=== PATIENT | male | born 1940 | race Caucasian/White ===

== ENCOUNTER 2019-04-28 09:48 | Emergency (ER) | payer MEDICARE ==
[2019-04-28 10:27] LABS: #Eosinphils 0.5 thou/uL (0.0-0.7); #Lymphocytes 0.5 thou/uL (1.20-3.40); #Monocytes 0.6 thou/uL (0.11-0.59); #Neutrophils 9.1 thou/uL (1.40-6.50); %Basophils 0.1 % (0.0-1.0); %Eosinophils 4.7 % (0.0-10.0); %Monocytes 5.3 % (0.0-10.0); %Neutrophils 84.8 % (42.0-75.0); Hemoglobin 14.1 g/dL (14.0-18.0); Mean Corpuscular HGB CONC 33.3 g/dL (32.0-36.0); Mean Corpuscular Hemoglobin 30.4 pg (27.0-31.0); Mean Corpuscular Volume 91.4 fL (78.0-98.0); Mean Platelet Volume 7.5 fL (7.4-10.4); Platelet Count 139 thou/uL (130-400); RBC Distribution Width 12.3 % (11.5-14.5); Red Blood Cell (RBC) Count 4.63 mill/uL (4.70-6.10); White Blood Cell (WBC) Count 10.8 thou/uL (4.8-10.8)
[2019-04-28] MEDS ORDERED: Ketorolac Tromethamine 30 MG/ML VIAL ONE (10:31)
--- NOTE | 2019-04-28 10:46 | CT ---
CT OF THE BRAIN WITHOUT CONTRAST: COMPARISON: None. HISTORY: Headache and neck pain. TECHNIQUE: Multiple contiguous axial images were obtained in a CT of the brain without contrast. FINDINGS: The brain is normal in morphology and attenuation without focal lesions or confluent areas of infarct ion. There is no evidence of hydrocephalus, intracranial hemorrhage, or extraaxial fluid collection. The calvarium and overlying soft tissues are unremarkable. The visualized paranasal sinuses and mast oid air cells are well aerated. IMPRESSION: No evidence of acute intracranial abnormality. POS: [facility]
--- NOTE | 2019-04-28 10:47 | CT ---
Cervical spine CT without contrast: 04/28/2019 COMPARISON: 05/11/2015 HISTORY: Headache and neck pain TECHNIQUE: Axial CT imaging at 2.5 mm intervals from skull base through lung apices without contrast. Coronal and sagittal reformatted imaging obtained. FINDINGS: Evaluation for central canal and/or neural foraminal stenosis is limited on routine cervica l spine CT. The craniocervical junction appears intact. There is prominent degenerative change at the atlantoaxia l interspace, stable. There is stable straightening of the normal cervical lordosis. There is prominent degenerative endpla te change with disc space narrowing and anterior osteophyte formation at C4-5, C5-6, C6-7, and C7-T1, slightly progressed at all levels when compared to the prior CT examination. The occipital condyles, the dens, and the C1-2 articulation demonstrate no acute findings. The C1 ring is intact. C2-3: No osseous cause of significant central canal or neural foraminal stenosis. Right facet hypertr ophy noted. C3-4: There is bilateral facet and uncovertebral osteophyte formation, right greater than left, with moderate bilateral neural foraminal stenosis, right greater than left. C4-5: Bilateral facet and uncovertebral osteophyte formation, right greater than left. Severe right a nd moderate left neural foraminal stenosis. C5-6: Posterior osteophyte formation with at least mild central canal stenosis noted. Bilateral facet and uncovertebral osteophyte formation noted with moderate/severe bilateral neural foraminal stenosis, left greater than right. C6-7: Bilateral facet and uncovertebral osteophyte formation with moderate/severe bilateral neural fo raminal stenosis. Posterior osteophyte formation with mild to moderate canal stenosis. C7-T1: There is disc space narrowing and posterior osteophyte as well as bilateral facet and uncovert ebral osteophyte formation, right greater than left. Moderate/severe bilateral neural foraminal stenosis, right greater than left. The imaged lung apices are unremarkable. No acute fracture or evidence of dislocation is seen. IMPRESSION: Severe multilevel cervical spine degenerative change as described above.
[2019-04-28 10:49] LABS: ALT (SGPT) 24 U/L (8-55); AST (SGOT) 20 U/L (5-34); Albumin 3.6 g/dL (3.4-4.8); Alkaline Phosphatase 76 U/L (40-150); Anion Gap 12 mmol/L (10-20); BUN (Urea Nitrogen) 14 mg/dL (8.4-25.7); Calc. Creatinine Clearance 0 mL/min (70-130); Calcium 9.4 mg/dL (7.8-10.44); Carbon Dioxide 26 mmol/L (23-31); Chloride 95 mmol/L (98-107); Estimated GFR-MDRD 65; Globulin 3.2 g/dL (2.4-3.5); Glucose 171 mg/dL (83-110); Potassium 3.8 mmol/L (3.5-5.1); Protein, Total 6.8 g/dL (5.8-8.1); Sodium 129 mmol/L (136-145)
== END 2019-04-28 12:47 | disposition home or self-care (01) ==
LOC: ERS 09:48
DX: M50.33 Other cervical disc degeneration, cervicothoracic region (principal); E03.9 Hypothyroidism, unspecified; K21.9 Gastro-esophageal reflux disease without esophagitis; Z79.899 Other long term (current) drug therapy
CPT/HCPCS: 36415; 70450; 72125; 80053; 85025; 96372; J1885

== ENCOUNTER 2019-04-29 13:47 | Inpatient (IN) | payer MEDICARE, BC ==
[2019-04-29 15:09] LABS: #Eosinphils 0.8 thou/uL (0.0-0.7); #Lymphocytes 0.6 thou/uL (1.20-3.40); #Monocytes 0.6 thou/uL (0.11-0.59); #Neutrophils 6.8 thou/uL (1.40-6.50); %Basophils 0.1 % (0.0-1.0); %Eosinophils 8.6 % (0.0-10.0); %Lymphocytes 6.4 % (21.0-51.0); %Monocytes 6.8 % (0.0-10.0); Hemoglobin 13.3 g/dL (14.0-18.0); Mean Corpuscular Hemoglobin 29.5 pg (27.0-31.0); Mean Corpuscular Volume 92.2 fL (78.0-98.0); Mean Platelet Volume 7.4 fL (7.4-10.4); Platelet Count 170 thou/uL (130-400); RBC Distribution Width 12.5 % (11.5-14.5); Red Blood Cell (RBC) Count 4.51 mill/uL (4.70-6.10); White Blood Cell (WBC) Count 8.8 thou/uL (4.8-10.8)
[2019-04-29 15:38] LABS: ALT (SGPT) 29 U/L (8-55); AST (SGOT) 19 U/L (5-34); Albumin 3.6 g/dL (3.4-4.8); Alkaline Phosphatase 83 U/L (40-150); Anion Gap 13 mmol/L (10-20); BUN (Urea Nitrogen) 14 mg/dL (8.4-25.7); Bilirubin, Total 1.3 mg/dL (0.2-1.2); Calc. Creatinine Clearance 0 mL/min (70-130); Calcium 10.2 mg/dL (7.8-10.44); Carbon Dioxide 29 mmol/L (23-31); Chloride 96 mmol/L (98-107); Estimated GFR-MDRD 74; Globulin 3.6 g/dL (2.4-3.5); Glucose 122 mg/dL (83-110); Potassium 4.2 mmol/L (3.5-5.1); Protein, Total 7.2 g/dL (5.8-8.1); Sodium 134 mmol/L (136-145)
--- NOTE | 2019-04-29 15:42 | RAD ---
PORTABLE CHEST ONE VIEW: 04/29/19 at 3:03 p.m. HISTORY: Upper chest pain. FINDINGS/IMPRESSION: The heart size is borderline. The lungs are well expanded without lobar consolidation, pneumothoraces , chu pulmonary edema, or large effusions. POS: [facility]
[2019-04-29 16:07] LABS: CKMB 5.1 ng/mL (0-6.6)
[2019-04-29] MEDS ORDERED: Aspirin Chewable 81 MG TAB ONE (17:16)
[2019-04-29] MEDS ORDERED: Enoxaparin Sodium 100 MG/ML SYRINGE ONE (17:16)
[2019-04-29 17:39] LABS: INR-International Normal Ratio 1.2
[2019-04-29 17:40] LABS: PTT 40.1 SEC (22.9-36.1)
[2019-04-29 18:34] LABS: Troponin I 0.409 ng/mL (< 0.028)
[2019-04-29] MEDS ORDERED: Ondansetron PF 4 MG/2 ML Vial IVP PRN ×2 (18:44→19:05)
[2019-04-29] MEDS ORDERED: Ondansetron ODT 4 MG TAB SL PRN (18:44)
[2019-04-29] MEDS ORDERED: Acetaminophen 325 MG TAB PO PRN (18:44)
[2019-04-29] MEDS ORDERED: Ondansetron ODT 4 MG TAB PO PRN (19:05)
[2019-04-29] MEDS: Famotidine 20 MG TAB PO SCH (20:38)
[2019-04-29] MEDS: Nitroglycerin 2% Ointment 1 INCH/1 GM Packet TOP SCH ×3 (20:38→20:40)
--- NOTE | 2019-04-29 23:06 | HP ---
PRIMARY CARE PHYSICIAN: Dr. Jas Lala. CHIEF COMPLAINT: Chest pain. HISTORY OF PRESENT ILLNESS: Mr. Barreto is a very pleasant 78-year-old gentleman who has a history of hyperthyroidism, who says that he also has a history of back pain and cervical spine disease. He says that in the last 4-5 days, he started having pains in his muscles, primarily in his legs and back. He also says he was not quite feeling well. For this reason, he went to the ER yesterday. At that time, they did an x-ray of his cervical spine as well as a CT scan of the brain. He says they gave him some shot and a muscle relaxer and the leg pains got better as well as the back pain. But late last night around 11:00 p.m., he says he was having trouble sleeping and started having pain in the center of his chest. He says it was like a constant pain that went up into his throat area. He rated it about a 9.5/10. He took some medication for pain, hoping that it would get better, but it only partially alleviated it. This went on through the night until today at which time, he decided he needed to come to the ER for evaluation. He also says that he has some heartburn-like feelings as well. There was no nausea, no vomiting, no shortness of breath and he denies any palpitations, and in no dizziness or lightheadedness. He did say he felt weak and his daughter says he was sweating a bit. The patient also denies any leg swelling. REVIEW OF SYSTEMS: CONSTITUTIONAL: There has been no fevers, chills. No night sweats. No weight loss. HEENT: No headaches. No dizziness. No visual changes. No sore throat, rhinorrhea, neck pain. No adenopathy. PULMONARY: No hemoptysis, no cough, no wheezing. CARDIOVASCULAR: As in the history of present illness. GASTROINTESTINAL: No abdominal pain. No nausea. No vomiting. No change in bowels. GENITOURINARY: No urinary frequency, hematuria, no hesitancy. MUSCULOSKELETAL: He had some leg pains and lower back pains primarily yesterday, but no muscle cramping. NEUROLOGIC: No focal weakness. No numbness. No seizures. SKIN AND INTEGUMENT: No skin changes. No rashes. ENDOCRINE: No heat or cold intolerance. PAST MEDICAL HISTORY: Significant for hypothyroid, what sounds like, which was initially hyperthyroidism and then he has been treated for hypothyroidism currently now. PAST SURGICAL HISTORY: He has had a lens implant in the right eye and carpal tunnel surgery on the right arm. ALLERGIES: NO KNOWN DRUG ALLERGIES. SOCIAL HISTORY: He is a nonsmoker and nondrinker. He is and is a full code. FAMILY HISTORY: Grandmother had an enlarged heart. Mother had some type of cardiac disease. MEDICATIONS: Include Synthroid 125 mcg daily. PHYSICAL EXAMINATION: GENERAL: He is alert and oriented. He appears to be in no acute distress. He is well developed and well nourished. VITAL SIGNS: Blood pressure is 151/80, heart rate 97, respiratory rate of 18, temperature is 98.7, and O2 saturation is 96% on room air. HEENT: His pupils are equal, round, and reactive. Extraocular muscles are intact. Sclerae are anicteric. Throat, no erythema, no exudates. He does have poor dentition. NECK: There is no adenopathy. No bruits. LUNGS: Clear to auscultation. There is no wheezing, no rales, no rhonchi. CARDIOVASCULAR: He has a normal S1 and S2. There is no S3 or S4. No murmurs, clicks, or rubs. ABDOMEN: Obese. It is soft. It is nontender, nondistended. Positive for bowel sounds. There is no rebound, no guarding, no organomegaly. EXTREMITIES: There is no clubbing, cyanosis, no edema. NEUROLOGICAL: Nonfocal. DIAGNOSTIC DATA: His EKG, by my reading, is sinus rhythm. There is evidence for right bundle-branch block, voltage criteria for LVH and the heart rate is 91. LAB RESULTS: White blood cell count 8.8, hemoglobin 13.3, hematocrit is 41.6, and platelet count is 170. Sodium 134, potassium 4.2, chloride is 96, CO2 is 29, BUN of 14, creatinine 0.98, glucose is 122. Troponin is 0.354. INR is 1.2. ASSESSMENT: This is a pleasant 78-year-old gentleman who presents to the ER with chest pain, atypical, albeit; however, his troponin is elevated. He will be admitted for acute coronary syndrome, started on aspirin, nitrates, and beta-blockers as tolerated. Cardiology will be consulted for further recommendations. 1. Hypothyroidism. He appears to be clinically euthyroid. We will check his thyroid function test and continue Synthroid. Otherwise, further recommendations will be based on the identification technician. Job ID: [id number]
[2019-04-29] MEDS: Acetaminophen 325 MG TAB PO PRN (23:15)
[2019-04-29] MEDS: Nitroglycerin 0.4 MG TAB (25 Tab Bottle) PO PRN ×3 (23:19→23:29)
[2019-04-30] MEDS: Nitroglycerin 0.4 MG TAB (25 Tab Bottle) PO PRN ×5 (00:17→23:44)
[2019-04-30] MEDS ORDERED: Morphine 2 MG/ML SYRINGE SLOW IVP SCH (01:30)
[2019-04-30 02:11] LABS: Hemoglobin 12.6 g/dL (14.0-18.0); Platelet Count 162 thou/uL (130-400)
[2019-04-30] MEDS ORDERED: Atorvastatin Calcium 40 MG TAB PO SCH (02:30)
[2019-04-30] MEDS: Heparin 25,000 units/D5W 500 ML IVPB SCH (02:33)
[2019-04-30] MEDS: Heparin 10,000 UNITS/ 10 ML VIAL SLOW IVP SCH ×4 (02:34→22:05)
[2019-04-30 04:53] LABS: #Eosinphils 0.9 thou/uL (0.0-0.7); #Lymphocytes 0.6 thou/uL (1.20-3.40); #Monocytes 0.5 thou/uL (0.11-0.59); #Neutrophils 5.2 thou/uL (1.40-6.50); %Basophils 0.1 % (0.0-1.0); %Eosinophils 12.2 % (0.0-10.0); %Lymphocytes 8.5 % (21.0-51.0); %Monocytes 6.7 % (0.0-10.0); %Neutrophils 72.5 % (42.0-75.0); Hemoglobin 12.4 g/dL (14.0-18.0); Mean Corpuscular Hemoglobin 28.6 pg (27.0-31.0); Mean Corpuscular Volume 92.2 fL (78.0-98.0); Mean Platelet Volume 7.5 fL (7.4-10.4); Platelet Count 170 thou/uL (130-400); RBC Distribution Width 12.5 % (11.5-14.5); Red Blood Cell (RBC) Count 4.35 mill/uL (4.70-6.10); White Blood Cell (WBC) Count 7.1 thou/uL (4.8-10.8)
[2019-04-30 05:15] LABS: Anion Gap 12 mmol/L (10-20); BUN (Urea Nitrogen) 18 mg/dL (8.4-25.7); Calc. Creatinine Clearance 96 mL/min (70-130); Calcium 9.5 mg/dL (7.8-10.44); Carbon Dioxide 27 mmol/L (23-31); Cardiac Risk 5.2 (Less than 4.5); Chloride 98 mmol/L (98-107); Cholesterol 134 mg/dl (< 200 Desired); Estimated GFR-MDRD 81; Glucose 127 mg/dL (83-110); HDL Cholesterol 26 mg/dL (>60 Neg Risk); LDL Cholesterol, Calculated 89 mg/dL; Sodium 133 mmol/L (136-145); Triglycerides 95 mg/dL (Less than 150)
[2019-04-30] MEDS: Nitroglycerin 2% Ointment 1 INCH/1 GM Packet TOP SCH ×3 (05:28→20:12)
[2019-04-30] MEDS: Carvedilol 3.125 MG TAB PO SCH ×2 (08:58→16:04)
[2019-04-30] MEDS ORDERED: Enoxaparin Sodium 40 MG/0.4 ML SYRINGE SC SCH (09:00)
[2019-04-30] MEDS ORDERED: Prevnar 13-Val Conj/PF 0.5 ML SYRINGE IM ONE (09:00)
[2019-04-30] MEDS: Famotidine 20 MG TAB PO SCH (09:02)
[2019-04-30] MEDS: Aspirin 325 mg Enteric Coated Tablet PO SCH (09:02)
[2019-04-30] MEDS ORDERED: Mag-Al 1200 mg/1200 mg/30 ML UDCUP PO PRN (13:23)
[2019-04-30] MEDS ORDERED: Cyclobenzaprine 10 MG TAB PO PRN (13:24)
[2019-04-30] MEDS ORDERED: Calcium Carbonate 500 MG ChewTAB PO PRN (13:25)
[2019-04-30] MEDS ORDERED: Bisacodyl 10 MG SUPP PR PRN (13:25)
[2019-04-30] MEDS ORDERED: Morphine 4 MG/ML VIAL SLOW IVP PRN (13:27)
[2019-04-30] MEDS ORDERED: traMADol HCl 50 MG TAB PO PRN (13:28)
[2019-04-30] MEDS ORDERED: Polyethylene Glycol 3350 17 GM Packet PO SCH (13:30)
[2019-04-30] MEDS ORDERED: Communication Order-Pharmacy FS SCH (19:45)
[2019-04-30] MEDS ORDERED: Sodium Chloride 0.9% 1,000 ML IV SCH (19:45)
--- NOTE | 2019-04-30 20:04 | PRG ---
DATE OF SERVICE: 04/30/2019 SUBJECTIVE: A 78-year-old male with hypothyroidism and GERD presented to the emergency room with chest discomfort. Please note that he was seen in the emergency room day before admission for neck pain. Cervical spine CT scan was consistent with severe multilevel cervical spine degenerative disease. He presented with a new onset chest discomfort that started in the last 24 hours. His workup was consistent with suspected [id number] MT with troponin of 0.430. He denies recent immobilization or travel. He is currently on heparin drip. The chest x-ray was negative for infiltrate or edema. OBJECTIVE: VITAL SIGNS: Temperature 98.2, pulse 87, respirations of 16, blood pressure 123/71, O2 saturation 95% on 2 L nasal cannula. Intake of 440, output 600. Current medications were reviewed. The patient is on heparin drip along with aspirin, nitroglycerin patch, carvedilol. Telemetry monitoring by my review showed sinus rhythm. GENERAL: A 78-year-old male, in no apparent distress. LUNGS: Clear to auscultation bilaterally. No wheezing, rales, or rhonchi. HEART: S1 and S2 present. Regular rate and rhythm. No rubs or gallops. ABDOMEN: Soft, nontender. Bowel sounds present. No rebound or guarding. EXTREMITIES: No edema or calf tenderness. NEUROLOGIC: Grossly nonfocal. Moves all 4 extremities. PSYCHIATRY: Normal affect. Alert awake oriented x3. LABORATORY FINDINGS: WBC 7.1 with hemoglobin 12.4, hematocrit 40.1, platelets 170. PTT 43.3. Sodium 133, potassium 4, chloride 98, bicarb 27, BUN 18, creatinine 0.91, glucose of 127. Troponin 0.430. TSH 2.11. Triglyceride 95, cholesterol 134, LDL 89, HDL 26. Chest x-ray by my review as discussed above. EKG by my review as discussed above. IMPRESSION: 1. Chest discomfort. 2. Elevated troponins, suspected [id number] myocardial infarction. 3. Hypothyroidism. 4. Cervical degenerative joint disease. 5. Chronic kidney disease, stage 2. 6. Obesity with a BMI of 32.1. 7. Mild hyponatremia. 8. Chronic anemia, normochromic normocytic. PLAN: Cardiology has been consulted. We will add echocardiogram. He is currently on aspirin, heparin drip, nitroglycerin patch, low-dose beta blockers, and statin. We will resume levothyroxine and Protonix. We will continue p.r.n. pain medications. Recheck labs in a.m. We will recheck EKG in a.m. Continue telemetry monitoring. Plan was discussed with the patient and the family in detail. They stated understanding. Job ID: [id number]
[2019-04-30] MEDS: Acetaminophen 325 MG TAB PO PRN (20:10)
[2019-04-30] MEDS: Senokot S 8.6-50 MG TAB PO SCH (20:12)
[2019-04-30] MEDS: Atorvastatin Calcium 40 MG TAB PO SCH (20:12)
--- NOTE | 2019-04-30 21:47 | CON ---
DATE OF CONSULTATION: HISTORY OF PRESENT ILLNESS: Emilio Barreto is a 78-year-old white male, who in 1991 had thyroid problems and underwent cardiac catheterization by Dr. Leonard. That information is no longer available. The patient states that he had normal coronary arteries. He denies ever having any significant chest discomfort in the past. He came to the emergency room on April 28 complaining of neck pain as well as pain throughout his body and his legs. He had a CT scan of the brain and C-spine films. Brain CT was unremarkable. Cervical spine CT revealed severe multilevel cervical spine degeneration. He was given muscle relaxers and ultimately sent home. In retrospect, he states that he was having chest discomfort during all of this, however, it was overshadowed by his neck and leg pain. He then had approximately one and a half hours of very severe chest discomfort at home. It was a constant pressure in his chest, radiating to his neck. Mild diaphoresis, but no nausea, vomiting , or shortness of breath. He took some type of pain medicine that he had at home for 7 or 8 years and came to the emergency room. He had abnormal cardiac enzymes and was admitted. He states last night that he had an episode of chest discomfort, relieved by sublingual nitroglycerin x3. He then had another episode that was relieved with intravenous morphine. He has not had any chest discomfort since. He has been started on carvedilol and topical nitrates. The also relates an episode approximately 1 month ago, where he was sitting at his computer and his vision went completely black. He felt lightheaded with this, but never did lose muscle tone or fall out of the chair. He is uncertain how long the episode lasted. PAST MEDICAL HISTORY: Initially hyperthyroidism, but now he is hypothyroid and is being treated with replacement. He denies history of diabetes, hypertension, or hypercholesterolemia. PAST SURGICAL HISTORY: Carpal tunnel surgery of the right wrist and lens implant in the right eye. MEDICATIONS: Omeprazole 20 mg daily p.r.n., levothyroxine 125 mcg daily. ALLERGIES: NONE. SOCIAL HISTORY: He smoked one and a half packs per day, but stopped 35 years ago. He does not drink. FAMILY HISTORY: Negative for coronary artery disease. REVIEW OF SYSTEMS: A 12-point review of systems is otherwise unremarkable. PHYSICAL EXAMINATION: VITAL SIGNS: Blood pressure 128/72, pulse 94. HEENT: PERRL. NECK: Supple. CHEST: Clear. CARDIAC: S1 and S2 normal without any S3, S4, or murmurs. Carotid upstrokes normal without bruits. ABDOMEN: Normal bowel sounds without tenderness. EXTREMITIES: Reveal no clubbing, cyanosis, or edema. NEUROLOGIC: Grossly intact. SKIN: Warm and dry. LABORATORY DATA: Chest x-ray revealed borderline cardiac enlargement. EKG reveals normal sinus rhythm with right bundle-branch block, left anterior fascicular block. Hemoglobin 12.4, hematocrit 40.1, white count 7100, platelets 170,000. The patient currently is on heparin drip. PTT is 43.3. Sodium 133, potassium 4.0, chloride 98, carbon dioxide 27, BUN 18, creatinine 0.91. Troponin I 0.354, increased to 0.430. Cholesterol 134, triglycerides 95, HDL 26, LDL 89. TSH is normal. IMPRESSION: 1. Non-ST elevation myocardial infarction. 2. Episode of near-syncope, approximately 1 month ago, where his vision darkened , but he never fell out of the chair or loss of muscle tone. 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 3. Probable hypercholesterolemia with an LDL of 89. 4. Distant smoker. 5. Hypothyroidism. PLAN: Situation was discussed with the patient, his , and family members. It was recommended that he undergo cardiac catheterization. Risks of this were discussed including , myocardial infarction, dye reaction, vascular injury, CVA, transfusion, limb loss, renal loss, etc. We also discussed stent placement with additional risk of , myocardial infarction, emergent CABG, restenosis, stent thrombosis, vessel perforation, etc. He has never had gastrointestinal bleeding or stroke. He does not have any upcoming surgeries. Overall, it was recommended that a drug-eluting stent be placed if needed. He agrees to take Plavix for 1 year. Job ID: [id number] [facility]
[2019-05-01] MEDS: Heparin 25,000 units/D5W 500 ML IVPB SCH ×2 (03:05→21:27)
[2019-05-01] MEDS: Levothyroxine Sodium 125 MCG TAB PO SCH (04:56)
[2019-05-01] MEDS: Nitroglycerin 2% Ointment 1 INCH/1 GM Packet TOP SCH ×3 (04:56→21:24)
[2019-05-01 05:07] LABS: #Eosinphils 1.2 thou/uL (0.0-0.7); #Lymphocytes 0.7 thou/uL (1.20-3.40); #Monocytes 0.4 thou/uL (0.11-0.59); #Neutrophils 3.6 thou/uL (1.40-6.50); %Basophils 0.5 % (0.0-1.0); %Eosinophils 20.2 % (0.0-10.0); %Lymphocytes 11.8 % (21.0-51.0); %Monocytes 6.5 % (0.0-10.0); Hemoglobin 13.9 g/dL (14.0-18.0); Mean Corpuscular HGB CONC 32.1 g/dL (32.0-36.0); Mean Corpuscular Hemoglobin 29.9 pg (27.0-31.0); Mean Corpuscular Volume 93.2 fL (78.0-98.0); Mean Platelet Volume 7.1 fL (7.4-10.4); Platelet Count 180 thou/uL (130-400); RBC Distribution Width 12.7 % (11.5-14.5); Red Blood Cell (RBC) Count 4.65 mill/uL (4.70-6.10); White Blood Cell (WBC) Count 5.9 thou/uL (4.8-10.8)
[2019-05-01 05:14] LABS: Hemoglobin A1c 6.1 % (4.0-6.0)
[2019-05-01 05:30] LABS: ALT (SGPT) 28 U/L (8-55); AST (SGOT) 22 U/L (5-34); Albumin 3.5 g/dL (3.4-4.8); Alkaline Phosphatase 92 U/L (40-150); Anion Gap 13 mmol/L (10-20); BUN (Urea Nitrogen) 19 mg/dL (8.4-25.7); Calc. Creatinine Clearance 81 mL/min (70-130); Calcium 9.7 mg/dL (7.8-10.44); Carbon Dioxide 31 mmol/L (23-31); Chloride 95 mmol/L (98-107); Estimated GFR-MDRD 66; Globulin 3.7 g/dL (2.4-3.5); Glucose 118 mg/dL (83-110); Potassium 4.1 mmol/L (3.5-5.1); Protein, Total 7.2 g/dL (5.8-8.1); Sodium 135 mmol/L (136-145)
[2019-05-01] MEDS: Heparin 10,000 UNITS/ 10 ML VIAL SLOW IVP SCH ×2 (05:50→12:53)
[2019-05-01 05:58] LABS: CKMB 1.7 ng/mL (0-6.6)
[2019-05-01] MEDS: Multivit, Therapeutic 1 TAB PO SCH (08:17)
[2019-05-01] MEDS: Senokot S 8.6-50 MG TAB PO SCH ×2 (08:17→21:25)
[2019-05-01] MEDS: Carvedilol 3.125 MG TAB PO SCH ×2 (08:17→16:10)
[2019-05-01] MEDS: Aspirin 325 mg Enteric Coated Tablet PO SCH (08:17)
[2019-05-01] MEDS: Polyethylene Glycol 3350 17 GM Packet PO SCH (08:20)
--- NOTE | 2019-05-01 10:05 | EKG ---
Test Reason : STAT CP Blood Pressure : / mmHG Vent. Rate : 102 BPM Atrial Rate : 102 BPM P-R Int : 170 ms QRS Dur : 118 ms QT Int : 372 ms P-R-T Axes : 060 -61 -21 degrees QTc Int : 484 ms Sinus tachycardia Left axis deviation Right bundle branch block Moderate voltage criteria for LVH, may be normal variant Nonspecific ST-T changes Abnormal ECG No previous ECGs available Confirmed by DR. Gisele FIGUEROA ([id number]) on 05/01/2019 10:05:39 AM Referred By: IRVIN Confirmed By:DR. Gisele FIGUEROA
[2019-05-01] MEDS: HYDROcodone/Acetaminophen 5/325 mg Tablet PO PRN ×2 (14:24→21:24)
--- NOTE | 2019-05-01 15:15 | PDOC.PN ---
- Subjective Encounter Start Date: 05/01/19 Encounter Start Time: 08:45 Patient seen and examined for NSTEMI. Had some CP last night - resolved with SL NTG. No new complaints. No overnight events - Objective Resuscitation Status - Order Detail: 04/29/19 19:01 Resuscitation Status Routine Resuscitation Status: FULL: Full Resuscitation MAR Reviewed: Yes Vital Signs & Weight: Vital Signs (12 hours) Temp Pulse Resp BP Pulse Ox 05/01/19 15:05 98.2 F 79 19 152/72 H 92 L 05/01/19 11:19 98.0 F 82 18 134/73 94 L 05/01/19 07:03 97.9 F 73 19 138/74 96 05/01/19 04:00 98.1 F 76 20 138/73 96 Weight Admit Weight 223 lb 8 oz Weight 223 lb I&O: 04/30/19 05/01/19 05/02/19 06:59 06:59 06:59 Intake Total 440 1220 Output Total 600 1635 Balance -160 -415 Result Diagrams: 05/01/19 04:58 05/01/19 04:58 EKG Reviewed by me: Yes (Tele SR) Phys Exam - Physical Examination Constitutional: NAD Respiratory: no wheezing, no rhonchi Cardiovascular: RRR, no rub Gastrointestinal: soft, non-tender, positive bowel sounds Musculoskeletal: no edema Neurological: moves all 4 limbs Dx/Plan - Plan DVT proph w/SCDs IMPRESSION: 1. CP/NSTEMI 2. Impaired glucose tolerance. 3. Hypothyroidism. 4. Cervical degenerative joint disease. 5. Chronic kidney disease, stage 2. 6. Obesity with a BMI of 32.1. 7. Mild hyponatremia. 8. Chronic anemia, normochromic normocytic. 9. Chronic diastolic HF PLAN: Cath in AM Cont ASA/Heparin drip per Cardiology Echo reviewed Cont nitroglycerin patch/beta blockers/statins. Cont levothyroxine and Protonix. Cont to monitor Makeup Instructor consult Laboratory Tests 04/30/19 05/01/19 05/01/19 04:37 04:58 04:58 Hemoglobin A1c 6.1 H Troponin I 0.413 H* TSH 3rd Generation 2.1745 Review of Systems - Review of Systems Constitutional: negative: fever, chills, sweats, weakness, malaise, other Respiratory: negative: Cough, Dry, Shortness of Breath, Hemoptysis, SOB with Excertion, Pleuritic Pain, Sputum, Wheezing - Medications/Allergies Allergies/Adverse Reactions: Allergies Allergy/AdvReac Type Severity Reaction Status Date / Time poison cliff extract Allergy Verified 04/30/19 05:28 Medications: Current Medications Acetaminophen (Tylenol) 650 mg PO Q4H PRN PRN Reason: Headache/Fever/Mild Pain (1-3) Last Admin: 04/30/19 20:10 Dose: 650 mg Hydrocodone Bitart/Acetaminophen ([place] 5/325) 1 tab PO Q4H PRN PRN Reason: Moderate Pain (4-6) Last Admin: 05/01/19 14:24 Dose: 1 tab Al Hydroxide/Mg Hydroxide (Maalox) 30 ml PO Q6H PRN PRN Reason: Heartburn or Indigestion Aspirin (Ecotrin) 325 mg PO DAILY [facility] Last Admin: 05/01/19 08:17 Dose: 325 mg Atorvastatin Calcium (Lipitor) 40 mg PO HS [facility] Last Admin: 04/30/19 20:12 Dose: 40 mg Bisacodyl (Dulcolax) 10 mg MI DAILYPRN PRN PRN Reason: Constipation Calcium Carbonate (Tums) 1,000 mg PO Q4H PRN PRN Reason: Heartburn or Indigestion Carvedilol (Coreg) 3.125 mg PO BID-[facility] Last Admin: 05/01/19 08:17 Dose: 3.125 mg Cyclobenzaprine HCl (Flexeril) 5 mg PO TID PRN PRN Reason: Muscle Spasm Stop: 05/02/19 13:25 Heparin Sodium (Porcine) (Heparin 1,000 Units/Ml (10 Ml)) 0 units SLOW IVP ASDIR [facility]; Protocol Last Admin: 05/01/19 12:53 Dose: 3,048 unit Heparin Sodium/Dextrose (Heparin 25,000 Units/D5w 500 Ml) 500 mls @ 0 mls/hr IVPB INF [facility]; Protocol Last Admin: 05/01/19 03:05 Dose: 500 mls Sodium Chloride (Normal Saline 0.9%) 1,000 mls @ 100 mls/hr IV .Q10H [facility] Levothyroxine Sodium (Synthroid) 125 mcg PO 0600 [facility] Last Admin: 05/01/19 04:56 Dose: 125 mcg Miscellaneous Information (Communication Order-Pharmacy) 0 each FS ONE [facility] Stop: 05/01/19 23:59 Morphine Sulfate (Morphine) 2 mg SLOW IVP Q4H PRN PRN Reason: Pain Stop: 05/02/19 13:28 Multivitamins (Theragran) 1 tab PO DAILY [facility] Last Admin: 05/01/19 08:17 Dose: 1 tab Nitroglycerin (Nitro-Bid 2% Ointment) 0.5 inch TOP Q8HR [facility] Last Admin: 05/01/19 13:25 Dose: 0.5 inch Nitroglycerin (Nitrostat) 0.4 mg PO Q5MIN PRN PRN Reason: Chest Pain Last Admin: 04/30/19 23:44 Dose: 1 tab Ondansetron HCl (Zofran Odt) 4 mg PO Q6H PRN PRN Reason: Nausea/Vomiting Ondansetron HCl (Zofran) 4 mg IVP Q6H PRN PRN Reason: Nausea/Vomiting Pantoprazole Sodium (Protonix) 40 mg PO DAILY [facility] Last Admin: 05/01/19 08:17 Dose: 40 mg Polyethylene Glycol (Miralax) 17 gm PO DAILY [facility] Last Admin: 05/01/19 08:20 Dose: Not Given Senna/Docusate Sodium (Senokot S) 2 tab PO BID [facility] Last Admin: 05/01/19 08:17 Dose: 2 tab Sodium Chloride (Flush - Normal Saline) 10 ml IVF PRN PRN PRN Reason: Saline Flush Tramadol HCl (Ultram) 50 mg PO Q4H PRN PRN Reason: Moderate Pain (4-6)
[2019-05-01] MEDS: Atorvastatin Calcium 40 MG TAB PO SCH (21:23)
[2019-05-02] MEDS: Nitroglycerin 2% Ointment 1 INCH/1 GM Packet TOP SCH ×2 (06:00→13:06)
[2019-05-02] MEDS: Levothyroxine Sodium 125 MCG TAB PO SCH (06:00)
[2019-05-02] MEDS: Multivit, Therapeutic 1 TAB PO SCH (06:01)
[2019-05-02] MEDS: Carvedilol 3.125 MG TAB PO SCH ×2 (06:01→16:25)
[2019-05-02] MEDS: Sodium Chloride 0.9% 1,000 ML IV SCH ×2 (06:01→15:29)
[2019-05-02] MEDS: Aspirin 325 mg Enteric Coated Tablet PO SCH (06:01)
[2019-05-02] MEDS ORDERED: Lidocaine 1% (PF) 30 ML VIAL ONE ×2 (07:29→13:37)
[2019-05-02] MEDS ORDERED: Heparin 0 ML ONE (07:29)
[2019-05-02] MEDS ORDERED: Heparin 10,000 UNITS/1 ML VIAL ONE (07:29)
[2019-05-02] MEDS: Senokot S 8.6-50 MG TAB PO SCH ×2 (08:15→21:02)
[2019-05-02] MEDS: Polyethylene Glycol 3350 17 GM Packet PO SCH (08:15)
[2019-05-02] MEDS: Acetaminophen 325 MG TAB PO PRN (10:20)
[2019-05-02] MEDS: HYDROcodone/Acetaminophen 5/325 mg Tablet PO PRN (10:21)
--- NOTE | 2019-05-02 11:50 | EKG ---
Test Reason : Blood Pressure : / mmHG Vent. Rate : 074 BPM Atrial Rate : 074 BPM P-R Int : 162 ms QRS Dur : 148 ms QT Int : 452 ms P-R-T Axes : 095 -60 042 degrees QTc Int : 501 ms Sinus rhythm with Premature atrial complexes Right bundle branch block Left anterior fascicular block Bifascicular block Minimal voltage criteria for LVH, may be normal variant Abnormal ECG When compared with ECG of 30-APR-2019 01:29, Premature atrial complexes are now Present Left anterior fascicular block is now Present Criteria for Inferior infarct are no longer Present ST no longer depressed in Inferior leads Confirmed by DR. Gisele FIGUEROA ([id number]) on 05/02/2019 11:49:39 AM Referred By: CECILIA Confirmed By:DR. Gisele FIGUEROA
[2019-05-02] MEDS ORDERED: Atropine Sulfate 1 mg/10 ml Syringe ONE (14:07)
[2019-05-02] MEDS ORDERED: Midazolam HCl 2 mg/2 ml Vial ONE (14:14)
[2019-05-02] MEDS ORDERED: Fentanyl 100 MCG/2 ML VIAL ONE (14:14)
[2019-05-02] MEDS ORDERED: Protamine Sulfate 50 MG/5 ML VIAL ONE (14:39)
[2019-05-02 14:58] VITALS: BMI 31.9
[2019-05-02] MEDS ORDERED: Acetaminophen/Codeine 30-300mg Tablet PO PRN ×2 (15:12)
[2019-05-02] MEDS ORDERED: Nitroglycerin 0.4 MG TAB (25 Tab Bottle) SL PRN (15:12)
[2019-05-02] MEDS ORDERED: Sodium Chloride 0.9% 200 ML IV PRN (15:12)
[2019-05-02] MEDS ORDERED: Sodium Chloride 0.9% 1,000 ML IV SCH (15:15)
[2019-05-02] MEDS ORDERED: Atorvastatin Calcium 20 MG TAB PO SCH (21:00)
--- NOTE | 2019-05-02 22:06 | PDOC.PN ---
- Subjective Encounter Start Date: 05/02/19 Encounter Start Time: 17:30 Patient seen and examined for NSTEMI. No new CP. s/p Cath. No new complaints. No overnight events - Objective Resuscitation Status - Order Detail: 04/29/19 19:01 Resuscitation Status Routine Resuscitation Status: FULL: Full Resuscitation MAR Reviewed: Yes Vital Signs & Weight: Vital Signs (12 hours) Temp Pulse Resp BP Pulse Ox 05/02/19 15:10 98.6 F 67 16 144/71 H 95 05/02/19 11:00 98.4 F 71 17 137/70 92 L Weight Admit Weight 224 lb Weight 222 lb 8 oz I&O: 05/01/19 05/02/19 05/03/19 06:59 06:59 06:59 Intake Total 1220 1486.4 1440 Output Total 1635 1750 650 Balance -415 -263.6 790 Result Diagrams: 05/03/19 04:34 05/03/19 06:16 EKG Reviewed by me: Yes (Tele SR) Phys Exam - Physical Examination Constitutional: NAD Respiratory: no wheezing, no rhonchi Cardiovascular: RRR, no rub Gastrointestinal: soft, non-tender, positive bowel sounds Musculoskeletal: no edema Neurological: moves all 4 limbs Dx/Plan - Plan DVT proph w/SCDs IMPRESSION: 1. CP/NSTEMI 2. Impaired glucose tolerance. 3. Hypothyroidism. 4. Cervical degenerative joint disease. 5. Chronic kidney disease, stage 2. 6. Obesity with a BMI of 32.1. 7. Mild hyponatremia. 8. Chronic anemia, normochromic normocytic. 9. Chronic diastolic HF PLAN: Cont ASA/BB/Statins/Imdur Cont other meds as below Review of Systems - Review of Systems Respiratory: negative: Cough, Dry, Shortness of Breath, Hemoptysis, SOB with Excertion, Pleuritic Pain, Sputum, Wheezing Cardiovascular: negative: chest pain, palpitations, orthopnea, paroxysmal nocturnal dyspnea, edema, light headedness, other - Medications/Allergies Allergies/Adverse Reactions: Allergies Allergy/AdvReac Type Severity Reaction Status Date / Time poison cliff extract Allergy Verified 04/30/19 05:28 Medications: Current Medications Acetaminophen (Tylenol) 650 mg PO Q4H PRN PRN Reason: Headache/Fever/Mild Pain (1-3) Last Admin: 05/02/19 10:20 Dose: 650 mg Acetaminophen/Codeine Phosphate (Tylenol #3) 1 tab PO Q4H PRN PRN Reason: Mild Pain (1-3) Acetaminophen/Codeine Phosphate (Tylenol #3) 2 tab PO Q4H PRN PRN Reason: Moderate Pain (4-6) Hydrocodone Bitart/Acetaminophen ([place] 5/325) 1 tab PO Q4H PRN PRN Reason: Moderate Pain (4-6) Last Admin: 05/02/19 10:21 Dose: 1 tab Al Hydroxide/Mg Hydroxide (Maalox) 30 ml PO Q6H PRN PRN Reason: Heartburn or Indigestion Aspirin (Ecotrin) 325 mg PO DAILY [facility] Last Admin: 05/02/19 06:01 Dose: 325 mg Atorvastatin Calcium (Lipitor) 20 mg PO [facility] Last Admin: 05/02/19 21:02 Dose: 20 mg Bisacodyl (Dulcolax) 10 mg MA DAILYPRN PRN PRN Reason: Constipation Calcium Carbonate (Tums) 1,000 mg PO Q4H PRN PRN Reason: Heartburn or Indigestion Carvedilol (Coreg) 3.125 mg PO BID[facility] Last Admin: 05/02/19 16:25 Dose: 3.125 mg Sodium Chloride (Normal Saline 0.9%) 200 mls @ 0 mls/hr IV ONE PRN PRN Reason: SBP < 90 Stop: 05/02/19 23:00 Isosorbide Mononitrate (Imdur Er) 30 mg PO DAILY [facility] Levothyroxine Sodium (Synthroid) 125 mcg PO 0600 [facility] Last Admin: 05/02/19 06:00 Dose: 125 mcg Multivitamins (Theragran) 1 tab PO DAILY [facility] Last Admin: 05/02/19 06:01 Dose: 1 tab Nitroglycerin (Nitrostat) 0.4 mg PO Q5MIN PRN PRN Reason: Chest Pain Last Admin: 04/30/19 23:44 Dose: 1 tab Nitroglycerin (Nitrostat) 0.4 mg SL Q5MIN PRN PRN Reason: Chest Pain Ondansetron HCl (Zofran Odt) 4 mg PO Q6H PRN PRN Reason: Nausea/Vomiting Ondansetron HCl (Zofran) 4 mg IVP Q6H PRN PRN Reason: Nausea/Vomiting Pantoprazole Sodium (Protonix) 40 mg PO DAILY [facility] Last Admin: 05/02/19 06:01 Dose: 40 mg Polyethylene Glycol (Miralax) 17 gm PO DAILY [facility] Last Admin: 05/02/19 08:15 Dose: Not Given Senna/Docusate Sodium (Senokot S) 2 tab PO BID [facility] Last Admin: 05/02/19 21:02 Dose: Not Given Sodium Chloride (Flush - Normal Saline) 10 ml IVF PRN PRN PRN Reason: Saline Flush Tramadol HCl (Ultram) 50 mg PO Q4H PRN PRN Reason: Moderate Pain (4-6)
[2019-05-03] MEDS: Levothyroxine Sodium 125 MCG TAB PO SCH (05:02)
[2019-05-03] MEDS: Acetaminophen 325 MG TAB PO PRN ×2 (05:05→13:39)
[2019-05-03 05:33] LABS: #Eosinphils 2.2 thou/uL (0.0-0.7); #Monocytes 0.6 thou/uL (0.11-0.59); #Neutrophils 5.3 thou/uL (1.40-6.50); %Basophils 0.3 % (0.0-1.0); %Eosinophils 24.2 % (0.0-10.0); %Lymphocytes 10.4 % (21.0-51.0); %Monocytes 6.7 % (0.0-10.0); %Neutrophils 58.4 % (42.0-75.0); Hemoglobin 12.7 g/dL (14.0-18.0); Mean Corpuscular HGB CONC 32.2 g/dL (32.0-36.0); Mean Corpuscular Hemoglobin 29.9 pg (27.0-31.0); Mean Corpuscular Volume 92.7 fL (78.0-98.0); Mean Platelet Volume 7.6 fL (7.4-10.4); Platelet Count 187 thou/uL (130-400); RBC Distribution Width 12.5 % (11.5-14.5); Red Blood Cell (RBC) Count 4.27 mill/uL (4.70-6.10); White Blood Cell (WBC) Count 9.1 thou/uL (4.8-10.8)
[2019-05-03 06:49] LABS: Albumin 2.8 g/dL (3.4-4.8)
[2019-05-03 06:50] LABS: Chloride 101 mmol/L (98-107); Potassium 4.1 mmol/L (3.5-5.1); Sodium 136 mmol/L (136-145)
[2019-05-03 06:51] LABS: Calcium 9.2 mg/dL (7.8-10.44)
[2019-05-03 06:52] LABS: Globulin 3.4 g/dL (2.4-3.5); Glucose 110 mg/dL (83-110); Protein, Total 6.2 g/dL (5.8-8.1)
[2019-05-03 06:53] LABS: Anion Gap 11 mmol/L (10-20); Carbon Dioxide 28 mmol/L (23-31)
[2019-05-03 06:54] LABS: Bilirubin, Total 0.7 mg/dL (0.2-1.2)
[2019-05-03 06:55] LABS: Alkaline Phosphatase 88 U/L (40-150); Calc. Creatinine Clearance 110 mL/min (70-130); Estimated GFR-MDRD Greater than 90
[2019-05-03 06:56] LABS: BUN (Urea Nitrogen) 13 mg/dL (8.4-25.7)
[2019-05-03 06:57] LABS: ALT (SGPT) 25 U/L (8-55); AST (SGOT) 31 U/L (5-34)
[2019-05-03] MEDS: Carvedilol 3.125 MG TAB PO SCH (08:05)
[2019-05-03] MEDS: Senokot S 8.6-50 MG TAB PO SCH (08:05)
[2019-05-03] MEDS: Aspirin 325 mg Enteric Coated Tablet PO SCH (08:05)
[2019-05-03] MEDS: Multivit, Therapeutic 1 TAB PO SCH (08:05)
[2019-05-03] MEDS: Polyethylene Glycol 3350 17 GM Packet PO SCH (08:06)
[2019-05-03] MEDS ORDERED: Polyethylene Glycol 3350 17 GM Packet PO PRN (08:32)
[2019-05-03] MEDS ORDERED: Prevnar 13-Val Conj/PF 0.5 ML SYRINGE IM ONE (11:15)
[2019-05-03 11:32] VITALS: BP 131/69; TEMP 98.3
--- NOTE | 2019-05-03 14:37 | DIS ---
DATE OF ADMISSION: 04/29/2019 DATE OF DISCHARGE: 05/03/2019 DISCHARGE DISPOSITION: Home. FOLLOWUP: Follow up with primary care physician, Dr. Lala, in 1 week. The patient was seen on the day of discharge. Denies any new complaints. No chest pain, shortness of breath or palpitations. Vital signs on the day of discharge show temperature of 98.4, pulse of 73, respirations of 18, blood pressure of 138/69 with O2 saturation of 96% on room air. DISCHARGE MEDICATION: 1. Aspirin 325 mg daily. 2. Lipitor 20 mg at bedtime. 3. Carvedilol 3.125 mg twice a day. 4. Isosorbide mononitrate 30 mg daily. 5. Sublingual nitroglycerin as needed. 6. Omeprazole as needed. 7. Levothyroxine 125 mcg daily. INPATIENT RIG SUPERVISOR: Cardiology, Dr. Kenn Mistry. SIGNIFICANT LABORATORY DATA: Hemoglobin A1c 6.1, maximum troponin 0.430. Fasting lipid profile showed total cholesterol of 134, LDL 89, triglyceride 95, and HDL 26. BRIEF HOSPITAL COURSE: The patient is a 78-year-old white male, who presented to the emergency room with chest discomfort. Please refer to the history and physical for further details. The patient was admitted to the hospital with a diagnosis of chest discomfort secondary to [id number] CA. He was monitored on the telemetry unit. He was found to have elevated troponin up to 0.430. He was evaluated by Cardiology, Dr. Mistry. He was placed on heparin drip over the weekend. An echocardiogram showed left ventricular ejection fraction of 55% to 60% with diastolic dysfunction, mild mitral regurgitation, mild tricuspid regurgitation. A cardiac cath was performed yesterday. Official report is pending at this time. No interventions were done. He has been cleared by Cardiology for discharge. FINAL DIAGNOSES: 1. Chest discomfort secondary to [id number] myocardial infarction. 2. Cervical degenerative joint disease. The patient was advised to follow up with Neurosurgery as outpatient. 3. Impaired glucose tolerance. The patient was counseled on low sugar diet. 4. Hypothyroidism. 5. Chronic kidney disease, stage 2. 6. Obesity with a BMI of 32.1. 7. Mild hyponatremia. 8. Chronic anemia. 9. Chronic diastolic heart failure. 10. Mild mitral regurgitation, mild tricuspid regurgitation. PLAN: Plan of care was discussed with the patient and the family in detail. They stated understanding. Job ID: [id number]
== END 2019-05-03 14:57 | disposition home or self-care (01) | DRG 281 ==
LOC: ERS 13:47 → 2NO 16:47
PROVIDERS: ADMIT Internal Medicine; ATTEND Internal Medicine
PROC: 4A023N7 Measurement of Cardiac Sampling and Pressure, Left Heart, Percutaneous Approach (ICD-10-PCS; principal; 2019-05-02)
PROC: B2151ZZ Fluoroscopy of Left Heart using Low Osmolar Contrast (ICD-10-PCS; 2019-05-02)
PROC: B2111ZZ Fluoroscopy of Multiple Coronary Arteries using Low Osmolar Contrast (ICD-10-PCS; 2019-05-02)
DX: I21.4 Non-ST elevation (NSTEMI) myocardial infarction (principal); E87.1 Hypo-osmolality and hyponatremia; I50.32 Chronic diastolic (congestive) heart failure; K21.9 Gastro-esophageal reflux disease without esophagitis; E03.9 Hypothyroidism, unspecified; E78.00 Pure hypercholesterolemia, unspecified; N18.2 Chronic kidney disease, stage 2 (mild); E66.9 Obesity, unspecified; D63.1 Anemia in chronic kidney disease; I08.1 Rheumatic disorders of both mitral and tricuspid valves; R73.02 Impaired glucose tolerance (oral); M50.30 Other cervical disc degeneration, unspecified cervical region; Z68.32 Body mass index [BMI] 32.0-32.9, adult; Z79.82 Long term (current) use of aspirin; Z79.899 Other long term (current) drug therapy
CPT/HCPCS: 36415; 70450; 71045; 72125; 80048; 80053; 80061; 82553; 83036; 83735; 84443; 84484; 85025; 85347; 85610; 85730; 90471; 90670; 93005; 93010; 93306; 93458; 93798; 94760; 96372; 99152; 99153; C1769; G0009; J0461; J1644; J1650; J1885; J2001; J2250; J2270; J2720; J3010

== ENCOUNTER 2022-08-03 08:20 | Emergency (ER) | payer MEDICARE, BC | END 2022-08-03 09:20 | disposition home or self-care (01) | LOC: ERS 08:20 | DX: T78.40XA Allergy, unspecified, initial encounter (principal); E78.00 Pure hypercholesterolemia, unspecified; I10 Essential (primary) hypertension; E03.9 Hypothyroidism, unspecified; K21.9 Gastro-esophageal reflux disease without esophagitis; Z87.891 Personal history of nicotine dependence | CPT/HCPCS: 99283 ==

== ENCOUNTER 2022-11-07 22:14 | Inpatient (IN) | payer MEDICARE, BC ==
[~2022-11-07 22:14] MED LIST: Iopamidol-370 76% 500 ML 1 ML ONE
[2022-11-07 22:50] LABS: #Lymphocytes 0.7 thou/uL (1.20-3.40); #Monocytes 0.5 thou/uL (0.11-0.59); %Basophils 0.1 % (0.0-1.0); %Eosinophils 0.1 % (0.0-10.0); %Monocytes 4.9 % (0.0-10.0); %Neutrophils 87.9 % (42.0-75.0); Hemoglobin 15.6 g/dL (14.0-18.0); Mean Corpuscular HGB CONC 34.2 g/dL (32.0-36.0); Mean Corpuscular Hemoglobin 30.7 pg (27.0-31.0); Mean Corpuscular Volume 89.9 fl (78.0-98.0); Mean Platelet Volume 8.6 fL (7.4-10.4); Platelet Count 148 10x3/uL (130-400); RBC Distribution Width 13.3 % (11.5-14.5); Red Blood Cell (RBC) Count 5.07 mill/uL (4.70-6.10); White Blood Cell (WBC) Count 10.3 10x3/uL (4.8-10.8)
[2022-11-07 23:07] LABS: ALT (SGPT) 10 U/L (8-55); AST (SGOT) 16 U/L (5-34); Albumin 4.1 g/dL (3.4-4.8); Alkaline Phosphatase 51 U/L (40-110); Anion Gap 15 mmol/L (10-20); BUN (Urea Nitrogen) 11 mg/dL (8.4-25.7); Bilirubin, Total 0.8 mg/dL (0.2-1.2); Calc. Creatinine Clearance 0 mL/min (70-130); Calcium 8.9 mg/dL (7.8-10.44); Carbon Dioxide 21 mmol/L (23-31); Chloride 103 mmol/L (98-107); Estimated GFR 75; Globulin 2.9 g/dL (2.4-3.5); Glucose 190 mg/dL (83-110); Lipase 20 U/L (8-78); Magnesium 2.1 mg/dL (1.6-2.6); Potassium 4.1 mmol/L (3.5-5.1); Sodium 135 mmol/L (136-145)
[2022-11-07 23:09] LABS: Prothrombin Time 13.9 sec (12.0-14.7)
[2022-11-07] MEDS ORDERED: Morphine 4 MG/ML VIAL ONE ×2 (23:26→23:30)
[2022-11-07] MEDS ORDERED: Ondansetron PF 4 MG/2 ML Vial ONE (23:26)
[2022-11-07 23:27] LABS: CKMB 3.3 ng/mL (0-6.6)
[2022-11-08] MEDS ORDERED: Morphine 4 MG/ML VIAL SLOW IVP PRN (01:23)
[2022-11-08] MEDS ORDERED: hydrALAZINE 20 MG/ML VIAL SLOW IVP PRN (01:23)
[2022-11-08 03:40] VITALS: BMI 31.1
[2022-11-08 05:38] LABS: Hemoglobin 17.1 g/dL (14.0-18.0); Mean Corpuscular HGB CONC 35.4 g/dL (32.0-36.0); Mean Corpuscular Volume 93.2 fl (78.0-98.0); Mean Platelet Volume 8.7 fL (7.4-10.4); Platelet Count 194 10x3/uL (130-400); RBC Distribution Width 13.6 % (11.5-14.5); Red Blood Cell (RBC) Count 5.18 mill/uL (4.70-6.10); White Blood Cell (WBC) Count 12.1 10x3/uL (4.8-10.8)
[2022-11-08 05:55] LABS: Hemoglobin A1c 5.9 % (4.0-6.0)
[2022-11-08] MEDS ORDERED: Levothyroxine Sodium 125 MCG TAB PO SCH (06:00)
[2022-11-08 06:43] LABS: Band 12 % (5-11); Lymphocytes 8 % (21-51); MDiff Complete? YES; Monocytes 4 % (0-10); Neutrophil 76 % (42-75)
[2022-11-08 07:36] LABS: Chloride 104 mmol/L (98-107); Potassium 4.2 mmol/L (3.5-5.1); Sodium 135 mmol/L (136-145)
[2022-11-08 07:38] LABS: Glucose 159 mg/dL (83-110); Triglycerides 65 mg/dL (Less than 150)
[2022-11-08 07:39] LABS: Anion Gap 15 mmol/L (10-20); Carbon Dioxide 20 mmol/L (23-31)
[2022-11-08 07:41] LABS: Calc. Creatinine Clearance 93 mL/min (70-130); Estimated GFR 85
[2022-11-08 07:42] LABS: BUN (Urea Nitrogen) 12 mg/dL (8.4-25.7)
[2022-11-08 07:43] LABS: Cardiac Risk 4.4 (Less than 4.5); Cholesterol 221 mg/dl (< 200 Desired); HDL Cholesterol 50 mg/dL (>60 Neg Risk); LDL Cholesterol, Calculated 158 mg/dL
[2022-11-08 08:06] LABS: Troponin I 0.543 ng/mL (< 0.028)
[2022-11-08 12:21] LABS: Lactic Acid 1.3 mmol/L (0.5-2.2)
[2022-11-08 12:59] LABS: CKMB 3.4 ng/mL (0-6.6)
[2022-11-09 05:31] LABS: Critical Call Chem Troponin I RESULT DECREASING; Troponin I 0.462 ng/mL (< 0.028)
[2022-11-09] MEDS: Levothyroxine Sodium 100 MCG TAB PO SCH (06:07)
[2022-11-09] MEDS ORDERED: HYDROmorphone 0.5 MG/0.5 ML SYRINGE SLOW IVP SCH (12:00)
[2022-11-09] MEDS: Ondansetron PF 4 MG/2 ML Vial IVP PRN (12:56)
[2022-11-09] MEDS: Acetaminophen 325 MG TAB PO PRN ×2 (12:58→22:46)
[2022-11-09] MEDS ORDERED: Piperacillin/Tazobactam 3.375 GM in Sodium Chloride 0.9% 100 ML IVPB SCH (20:00)
[2022-11-09] MEDS ORDERED: Senokot S 8.6-50 MG TAB PO SCH (21:00)
[2022-11-09] MEDS ORDERED: Sodium Chloride 0.9% 500 ML IV SCH ×2 (21:30→23:45)
[2022-11-09 22:06] LABS: #Lymphocytes 0.3 thou/uL (1.20-3.40); #Monocytes 0.1 thou/uL (0.11-0.59); #Neutrophils 7.6 thou/uL (1.40-6.50); %Eosinophils 0.1 % (0.0-10.0); %Lymphocytes 3.3 % (21.0-51.0); %Monocytes 0.6 % (0.0-10.0); Hemoglobin 14.6 g/dL (14.0-18.0); Mean Corpuscular HGB CONC 32.9 g/dL (32.0-36.0); Mean Corpuscular Hemoglobin 30.4 pg (27.0-31.0); Mean Corpuscular Volume 92.3 fl (78.0-98.0); Mean Platelet Volume 8.2 fL (7.4-10.4); Platelet Count 88 10x3/uL (130-400); Platelet Morphology Comment Appears Decreased; RBC Distribution Width 13.3 % (11.5-14.5); RBC Morphology Normal; Red Blood Cell (RBC) Count 4.79 mill/uL (4.70-6.10); White Blood Cell (WBC) Count 7.9 10x3/uL (4.8-10.8)
[2022-11-09 22:07] LABS: ALT (SGPT) 11 U/L (8-55); AST (SGOT) 23 U/L (5-34); Albumin 3.3 g/dL (3.4-4.8); Alkaline Phosphatase 94 U/L (40-110); Anion Gap 16 mmol/L (10-20); BUN (Urea Nitrogen) 18 mg/dL (8.4-25.7); Bilirubin, Total 2.4 mg/dL (0.2-1.2); Calc. Creatinine Clearance 50 mL/min (70-130); Carbon Dioxide 18 mmol/L (23-31); Chloride 101 mmol/L (98-107); Estimated GFR 40; Globulin 2.5 g/dL (2.4-3.5); Glucose 149 mg/dL (83-110); Magnesium 1.6 mg/dL (1.6-2.6); Potassium 3.3 mmol/L (3.5-5.1); Protein, Total 5.8 g/dL (5.8-8.1); Sodium 132 mmol/L (136-145)
[2022-11-09] MEDS ORDERED: Potassium Chloride 20 MEQ TAB PO SCH (22:15)
[2022-11-09] MEDS ORDERED: Magnesium 2 GM/50 ML(in water) 2 GM in Premix Bag 1 BAG IVPB SCH (22:15)
[2022-11-09] MEDS ORDERED: Potassium Chloride 20 MEQ in Lactated Ringer's 1,000 ML IV SCH (22:30)
[2022-11-09 23:47] LABS: Lactic Acid 3.4 mmol/L (0.5-2.2)
[2022-11-10] MEDS: Potassium Chloride 20 MEQ in Lactated Ringer's 1,000 ML IV SCH ×2 (00:33→09:05)
[2022-11-10] MEDS ORDERED: VANCOMYCIN 2 GRAM/500 ML BAG 2 GM in Premix Bag 1 BAG IVPB SCH (01:00)
[2022-11-10] MEDS ORDERED: Piperacillin/Tazobactam 3.375 GM in Sodium Chloride 0.9% 100 ML IVPB SCH (01:00)
[2022-11-10] MEDS ORDERED: Cefepime 1 GM in Sodium Chloride 0.9% 100 ML IVPB SCH (01:00)
[2022-11-10] MEDS ORDERED: Albumin 25% 25 GM/100 ML BOT IVPB SCH (02:00)
[2022-11-10 02:21] LABS: Actual Bicarbonate (HCO3a) 22.7 mEq/L (22-28); Base Excess (BEa) -3.3 mEq/L (-2.0 to +3.0); CO2 Tension 44.2 mmHg (35.0-45.0); Calcium, Ionized (arterial) 1.16 mmol/L (1.12-1.30); Carboxyhemoglobin (COHb) 0.7 gm% (0.0-3.0); Hemoglobin (Hb) 13.4 g/dL (14.0-18.0); O2 Tension (PaO2), arterial 63.2 mmHg (> 60.0); Potassium - ABG Lab 3.11 mmol/L (3.70-5.30); pH, Arterial 7.33 (7.35-7.45)
[2022-11-10 02:27] LABS: Puncture Site LBA
[2022-11-10 02:41] LABS: Band 24 % (5-11); Hemoglobin 13.5 g/dL (14.0-18.0); Lymphocytes 4 % (21-51); MDiff Complete? YES; Mean Corpuscular HGB CONC 34.2 g/dL (32.0-36.0); Mean Corpuscular Hemoglobin 31.7 pg (27.0-31.0); Mean Corpuscular Volume 92.6 fl (78.0-98.0); Mean Platelet Volume 8.4 fL (7.4-10.4); Monocytes 7 % (0-10); Neutrophil 65 % (42-75); Platelet Count 91 10x3/uL (130-400); Platelet Morphology Comment Appears Decreased; RBC Distribution Width 13.3 % (11.5-14.5); Red Blood Cell (RBC) Count 4.26 mill/uL (4.70-6.10); White Blood Cell (WBC) Count 10.3 10x3/uL (4.8-10.8)
[2022-11-10 02:53] LABS: Anion Gap 15 mmol/L (10-20); BUN (Urea Nitrogen) 21 mg/dL (8.4-25.7); Calc. Creatinine Clearance 40 mL/min (70-130); Calcium 8.5 mg/dL (7.8-10.44); Carbon Dioxide 19 mmol/L (23-31); Chloride 101 mmol/L (98-107); Estimated GFR 31; Glucose 119 mg/dL (83-110); Potassium 3.2 mmol/L (3.5-5.1); Sodium 132 mmol/L (136-145)
[2022-11-10] MEDS: NOREPINEPHRINE 8 MG/250 ML-D5W 250 ML IVPB SCH ×2 (03:00→10:30)
[2022-11-10] MEDS ORDERED: Lidocaine 2% Viscous Solution 10 ML, Aluminum & Magnesium Hydroxide 30 ML SSW SCH (03:30)
[2022-11-10] MEDS ORDERED: Sodium Chloride 0.9% 500 ML IV SCH (03:30)
[2022-11-10] MEDS: Cefepime 1 GM in Sodium Chloride 0.9% 100 ML IVPB SCH ×2 (03:46→15:43)
[2022-11-10] MEDS: metroNIDAZOLE 500 MG in Premix Bag 1 BAG IVPB SCH ×3 (03:46→20:31)
[2022-11-10 04:08] LABS: Bacteria/HPF None Seen HPF (None Seen); Bilirubin Negative (Negative); Blood, Urine 3+ (Negative); CAUTI Indications for Culture Alt mental st,lethar; Clarity Turbid (Clear); Glucose, Urine (Dipstick) Normal (Negative); Ketone, Urine 10 mg/dL (Negative); Leukocyte Negative Leu/uL (Negative); Nitrite Negative (Negative); Protein, Urine (Dipstick) 70 mg/dL (Neg-Trace); RBC/HPF Greater than 50 HPF (0-3); Specific Gravity, Urine 1.018 (1.002-1.036); Squamous Epithelial None Seen HPF (0-3); Urobilinogen 6 mg/dL (Less than 2); WBC/HPF 21-50 HPF (0-3); pH, Urine 6.5 (5.0-9.0)
[2022-11-10 04:09] LABS: Urine Culture Reflex Yes Yes
[2022-11-10 05:22] LABS: INR-International Normal Ratio 1.3; Prothrombin Time 16.3 sec (12.0-14.7)
[2022-11-10 05:23] LABS: PTT 49.5 sec (22.9-36.1)
[2022-11-10] MEDS ORDERED: metroNIDAZOLE 500 MG in Premix Bag 1 BAG IVPB SCH (06:00)
[2022-11-10 08:18] LABS: Lactic Acid 3.3 mmol/L (0.5-2.2)
[2022-11-10 08:23] LABS: Hemoglobin 13.3 g/dL (14.0-18.0); Platelet Count 104 10x3/uL (130-400)
[2022-11-10] MEDS: Levothyroxine Sodium 100 MCG TAB PO SCH (09:02)
[2022-11-10] MEDS: Ondansetron PF 4 MG/2 ML Vial IVP PRN (14:26)
[2022-11-10] MEDS ORDERED: Electrolyte Replacement Protocol 1 EACH FS SCH (15:00)
[2022-11-10] MEDS ORDERED: Electrolyte Replacement Protocol FS PRN (15:15)
[2022-11-10] MEDS ORDERED: Potassium Chloride 20 MEQ TAB PO SCH (15:15)
[2022-11-10] MEDS ORDERED: Magnesium 2 GM/50 ML(in water) 2 GM in Premix Bag 1 BAG IVPB SCH (15:30)
[2022-11-10 15:58] LABS: Lactic Acid 2.9 mmol/L (0.5-2.2)
[2022-11-10] MEDS: Acetaminophen 325 MG TAB PO PRN (16:02)
[2022-11-10 16:05] LABS: Anion Gap 17 mmol/L (10-20); BUN (Urea Nitrogen) 32 mg/dL (8.4-25.7); Calc. Creatinine Clearance 29 mL/min (70-130); Calcium 8.2 mg/dL (7.8-10.44); Carbon Dioxide 19 mmol/L (23-31); Chloride 99 mmol/L (98-107); Estimated GFR 20; Glucose 143 mg/dL (83-110); Potassium 5.2 mmol/L (3.5-5.1); Sodium 130 mmol/L (136-145)
[2022-11-10] MEDS: Sodium Chloride 0.9% 1,000 ML IV SCH (17:35)
[2022-11-10] MEDS: Saccharomyces boulardii 250 MG CAP PO SCH (20:31)
[2022-11-10 20:58] LABS: Potassium 5.2 mmol/L (3.5-5.1)
[2022-11-11] MEDS: Sodium Chloride 0.9% 1,000 ML IV SCH ×2 (00:25→23:46)
[2022-11-11] MEDS ORDERED: Vancomycin 1.5 GRAM/300 ML BAG 1.5 GM in Premix Bag 1 BAG IVPB SCH (01:00)
[2022-11-11] MEDS: Cefepime 1 GM in Sodium Chloride 0.9% 100 ML IVPB SCH (03:15)
[2022-11-11] MEDS: metroNIDAZOLE 500 MG in Premix Bag 1 BAG IVPB SCH ×3 (04:25→20:41)
[2022-11-11 04:38] LABS: Hemoglobin 12.3 g/dL (14.0-18.0); Mean Corpuscular Hemoglobin 30.1 pg (27.0-31.0); Mean Corpuscular Volume 93.9 fl (78.0-98.0); Platelet Count 62 10x3/uL (130-400); RBC Distribution Width 13.7 % (11.5-14.5); Red Blood Cell (RBC) Count 4.09 mill/uL (4.70-6.10); White Blood Cell (WBC) Count 9.3 10x3/uL (4.8-10.8)
[2022-11-11 04:46] LABS: ALT (SGPT) 16 U/L (8-55); AST (SGOT) 25 U/L (5-34); Albumin 3.1 g/dL (3.4-4.8); Alkaline Phosphatase 41 U/L (40-110); Anion Gap 13 mmol/L (10-20); BUN (Urea Nitrogen) 40 mg/dL (8.4-25.7); Bilirubin, Total 1.1 mg/dL (0.2-1.2); Calc. Creatinine Clearance 31 mL/min (70-130); Calcium 8.1 mg/dL (7.8-10.44); Carbon Dioxide 21 mmol/L (23-31); Chloride 103 mmol/L (98-107); Estimated GFR 23; Globulin 2.8 g/dL (2.4-3.5); Glucose 100 mg/dL (83-110); Magnesium 2.5 mg/dL (1.6-2.6); Phosphorus 3.1 mg/dL (2.3-4.7); Potassium 5.2 mmol/L (3.5-5.1); Protein, Total 5.9 g/dL (5.8-8.1); Sodium 132 mmol/L (136-145)
[2022-11-11 05:20] LABS: Band 41 % (5-11); Lymphocytes 2 % (21-51); MDiff Complete? YES; Monocytes 6 % (0-10); Neutrophil 51 % (42-75); Platelet Morphology Comment Appears Decreased; Toxic Granulation SLIGHT
[2022-11-11] MEDS: Levothyroxine Sodium 100 MCG TAB PO SCH (06:07)
[2022-11-11] MEDS: Sodium Bicarbonate 100 MEQ in Sodium Chloride 0.45% 1,000 ML IV SCH ×3 (08:30→21:07)
[2022-11-11] MEDS: Aspirin 81 mg Enteric Coated Tablet PO SCH (08:31)
[2022-11-11] MEDS ORDERED: Heparin 5,000 UNITS/ML VIAL SC SCH (09:00)
[2022-11-11] MEDS: Acetaminophen 325 MG TAB PO PRN (11:58)
[2022-11-11] MEDS ORDERED: Morphine 4 MG/ML VIAL ONE (12:31)
[2022-11-11] MEDS ORDERED: Metoclopramide HCl 10 MG/2 ML VIAL IVP PRN (12:43)
[2022-11-11] MEDS ORDERED: Metoclopramide HCl 10 MG/2 ML VIAL IVP SCH (12:45)
[2022-11-11] MEDS ORDERED: Ondansetron PF 4 MG/2 ML Vial IVP SCH (12:45)
[2022-11-11] MEDS ORDERED: Fleet Enema 133 ML BOT PR SCH (12:45)
[2022-11-11] MEDS ORDERED: Morphine 4 MG/ML VIAL SLOW IVP SCH (12:45)
[2022-11-11] MEDS: Ondansetron PF 4 MG/2 ML Vial IVP PRN (12:48)
[2022-11-11] MEDS: cefTRIAXone\\ROCEPHIN 2 GM in Sodium Chloride 0.9% 100 ML IVPB SCH (14:56)
[2022-11-11 16:25] LABS: Anion Gap 12 mmol/L (10-20); BUN (Urea Nitrogen) 46 mg/dL (8.4-25.7); Calc. Creatinine Clearance 36 mL/min (70-130); Calcium 8.1 mg/dL (7.8-10.44); Carbon Dioxide 23 mmol/L (23-31); Chloride 102 mmol/L (98-107); Estimated GFR 26; Glucose 153 mg/dL (83-110); Potassium 4.6 mmol/L (3.5-5.1); Sodium 132 mmol/L (136-145)
[2022-11-11] MEDS: Carvedilol 3.125 MG TAB PO SCH (18:27)
[2022-11-11] MEDS: Saccharomyces boulardii 250 MG CAP PO SCH (20:42)
[2022-11-12] MEDS ORDERED: Morphine 2 MG/ML VIAL SLOW IVP SCH (02:30)
[2022-11-12] MEDS: metroNIDAZOLE 500 MG in Premix Bag 1 BAG IVPB SCH ×2 (04:07→16:43)
[2022-11-12 04:24] LABS: Hemoglobin 12.1 g/dL (14.0-18.0); Mean Corpuscular HGB CONC 32.8 g/dL (32.0-36.0); Mean Corpuscular Hemoglobin 30.5 pg (27.0-31.0); Mean Corpuscular Volume 93.1 fl (78.0-98.0); Mean Platelet Volume 9.1 fL (7.4-10.4); Platelet Count 47 10x3/uL (130-400); RBC Distribution Width 13.6 % (11.5-14.5); Red Blood Cell (RBC) Count 3.96 mill/uL (4.70-6.10)
[2022-11-12 04:29] LABS: INR-International Normal Ratio 1.1; Prothrombin Time 14.3 sec (12.0-14.7)
[2022-11-12 04:30] LABS: PTT 37.5 sec (22.9-36.1)
[2022-11-12 04:46] LABS: ALT (SGPT) 14 U/L (8-55); AST (SGOT) 25 U/L (5-34); Albumin 2.7 g/dL (3.4-4.8); Alkaline Phosphatase 76 U/L (40-110); Anion Gap 14 mmol/L (10-20); BUN (Urea Nitrogen) 50 mg/dL (8.4-25.7); Bilirubin, Total 0.9 mg/dL (0.2-1.2); Calc. Creatinine Clearance 39 mL/min (70-130); Calcium 8.1 mg/dL (7.8-10.44); Carbon Dioxide 20 mmol/L (23-31); Chloride 105 mmol/L (98-107); Estimated GFR 30; Globulin 2.7 g/dL (2.4-3.5); Glucose 105 mg/dL (83-110); Protein, Total 5.4 g/dL (5.8-8.1); Sodium 135 mmol/L (136-145)
[2022-11-12 05:05] LABS: Band 7 % (5-11); Lymphocytes 5 % (21-51); MDiff Complete? YES; Monocytes 2 % (0-10); Neutrophil 86 % (42-75); Platelet Morphology Comment Appears Decreased; Polychromasia SLIGHT = 2-3 cells (100X) (0-2/hpf); Vacuoles SLIGHT
[2022-11-12] MEDS: Levothyroxine Sodium 100 MCG TAB PO SCH (05:06)
[2022-11-12] MEDS: Carvedilol 3.125 MG TAB PO SCH ×2 (08:30→16:53)
[2022-11-12] MEDS: Levothyroxine Sodium 125 MCG TAB PO SCH (08:31)
[2022-11-12] MEDS ORDERED: Iopamidol 30 ML ONE (09:33)
[2022-11-12] MEDS ORDERED: Bupivacaine/Epinephrine 0.25% 30 ML VIAL ONE (09:33)
[2022-11-12] MEDS ORDERED: fentaNYL PF 100 MCG/2 ML SYRINGE ONE (09:36)
[2022-11-12] MEDS ORDERED: Ketamine 50 MG/ML (10ML VIAL) ONE (09:57)
[2022-11-12] MEDS ORDERED: Norepinephrine 4 MG/4 ML VIAL ONE (09:57)
[2022-11-12] MEDS ORDERED: Lidocaine 1% PF 5 ML VIAL ONE (10:22)
[2022-11-12] MEDS ORDERED: Glycopyrrolate 0.2 MG/ML 5 ML SYRINGE ONE (10:22)
[2022-11-12] MEDS ORDERED: Rocuronium Bromide 10 MG/ML (10ML VIAL) ONE (10:22)
[2022-11-12] MEDS ORDERED: PROPOFOL 200 MG/20 ML VIAL ONE (10:22)
[2022-11-12] MEDS ORDERED: Ondansetron PF 4 MG/2 ML Vial ONE (10:22)
[2022-11-12] MEDS ORDERED: NEOSTIGMINE 3 MG/3 ML SYR 3 MG/3 ML SYRINGE ONE (10:22)
[2022-11-12] MEDS ORDERED: PHENYLEPHRINE-NS 100 MCG/ML 10 ML SYRINGE ONE (10:22)
[2022-11-12] MEDS ORDERED: Albumin 5% 500 ML ONE (10:30)
[2022-11-12] MEDS ORDERED: Promethazine HCl 25 MG/ML VIAL IM PRN (12:40)
[2022-11-12] MEDS ORDERED: Ondansetron HCl/PF 4 MG/2 ML Vial IVP PRN (12:40)
[2022-11-12] MEDS ORDERED: Fentanyl 100 MCG/2 ML VIAL ONE (13:00)
[2022-11-12] MEDS: Acetaminophen/Codeine 30-300mg Tablet PO SCH ×2 (14:22→18:50)
[2022-11-12] MEDS: Sodium Chloride 0.9% 1,000 ML IV SCH (14:26)
[2022-11-12] MEDS: cefTRIAXone\\ROCEPHIN 2 GM in Sodium Chloride 0.9% 100 ML IVPB SCH (14:33)
[2022-11-12] MEDS ORDERED: Piperacillin/Tazobactam 3.375 GM in Sodium Chloride 0.9% 100 ML IVPB SCH ×2 (21:00→22:00)
[2022-11-12] MEDS: Saccharomyces boulardii 250 MG CAP PO SCH (21:08)
[2022-11-12] MEDS ORDERED: Morphine 2 MG/ML VIAL SLOW IVP PRN (21:51)
[2022-11-13] MEDS: Sodium Chloride 0.9% 1,000 ML IV SCH ×5 (00:30→23:42)
[2022-11-13] MEDS: Acetaminophen/Codeine 30-300mg Tablet PO SCH ×4 (01:35→19:54)
[2022-11-13] MEDS: Piperacillin/Tazobactam 3.375 GM in Sodium Chloride 0.9% 100 ML IVPB SCH ×2 (01:35→08:30)
[2022-11-13 04:48] LABS: ALT (SGPT) 16 U/L (8-55); AST (SGOT) 40 U/L (5-34); Albumin 2.6 g/dL (3.4-4.8); Alkaline Phosphatase 59 U/L (40-110); Anion Gap 13 mmol/L (10-20); BUN (Urea Nitrogen) 61 mg/dL (8.4-25.7); Bilirubin, Direct 0.3 mg/dL (0.1-0.3); Bilirubin, Total 0.5 mg/dL (0.2-1.2); Calc. Creatinine Clearance 36 mL/min (70-130); Calcium 7.7 mg/dL (7.8-10.44); Carbon Dioxide 23 mmol/L (23-31); Chloride 104 mmol/L (98-107); Estimated GFR 27; Glucose 128 mg/dL (83-110); Magnesium 2.7 mg/dL (1.6-2.6); Phosphorus 3.1 mg/dL (2.3-4.7); Potassium 4.1 mmol/L (3.5-5.1); Protein, Total 5.2 g/dL (5.8-8.1); Sodium 136 mmol/L (136-145)
[2022-11-13] MEDS: metroNIDAZOLE 500 MG in Premix Bag 1 BAG IVPB SCH (04:52)
[2022-11-13 05:10] LABS: Band 19 % (5-11); Eosinophils 1 % (0-10); Lymphocytes 14 % (21-51); MDiff Complete? YES; Mean Corpuscular HGB CONC 32.9 g/dL (32.0-36.0); Mean Corpuscular Volume 94.2 fl (78.0-98.0); Mean Platelet Volume 10.1 fL (7.4-10.4); Monocytes 4 % (0-10); Neutrophil 62 % (42-75); Platelet Count 41 10x3/uL (130-400); Platelet Morphology Comment Appears Decreased; Red Blood Cell (RBC) Count 3.56 mill/uL (4.70-6.10); White Blood Cell (WBC) Count 7.5 10x3/uL (4.8-10.8)
[2022-11-13] MEDS: Carvedilol 3.125 MG TAB PO SCH ×2 (08:24→16:53)
[2022-11-13] MEDS: Levothyroxine Sodium 125 MCG TAB PO SCH (08:25)
[2022-11-13 15:28] LABS: Bacteria/HPF None Seen HPF (None Seen); Bilirubin Negative (Negative); Blood, Urine 2+ (Negative); Clarity Clear (Clear); Glucose, Urine (Dipstick) Normal (Negative); Ketone, Urine Negative (Negative); Leukocyte 25 Leu/uL (Negative); Nitrite Negative (Negative); Protein, Urine (Dipstick) 30 mg/dL (Neg-Trace); Specific Gravity, Urine 1.022 (1.002-1.036); Squamous Epithelial 0-3 HPF (0-3); Urobilinogen Normal mg/dL (Less than 2); WBC/HPF 0-3 HPF (0-3); pH, Urine 5.5 (5.0-9.0)
[2022-11-13] MEDS: Amoxicillin/Potassium Clav 875 MG TAB PO SCH (19:55)
[2022-11-13] MEDS: Saccharomyces boulardii 250 MG CAP PO SCH (19:55)
[2022-11-14] MEDS: Benzonatate 100 MG CAP PO PRN ×2 (00:22→05:43)
[2022-11-14] MEDS: Acetaminophen/Codeine 30-300mg Tablet PO SCH ×4 (02:47→19:29)
[2022-11-14] MEDS: Levothyroxine Sodium 125 MCG TAB PO SCH (08:26)
[2022-11-14] MEDS: Amoxicillin/Potassium Clav 875 MG TAB PO SCH ×2 (08:27→19:31)
[2022-11-14] MEDS: Aspirin 81 mg Enteric Coated Tablet PO SCH (08:27)
[2022-11-14] MEDS: Carvedilol 3.125 MG TAB PO SCH ×2 (08:27→16:29)
[2022-11-14 09:05] LABS: #Eosinphils 0.1 thou/uL (0.0-0.7); #Lymphocytes 0.7 thou/uL (1.20-3.40); #Monocytes 0.6 thou/uL (0.11-0.59); #Neutrophils 6.4 thou/uL (1.40-6.50); %Basophils 0.1 % (0.0-1.0); %Eosinophils 1.2 % (0.0-10.0); %Lymphocytes 9.2 % (21.0-51.0); %Monocytes 7.3 % (0.0-10.0); %Neutrophils 82.2 % (42.0-75.0); Hemoglobin 12.1 g/dL (14.0-18.0); Mean Corpuscular HGB CONC 33.1 g/dL (32.0-36.0); Mean Corpuscular Hemoglobin 31.4 pg (27.0-31.0); Mean Corpuscular Volume 94.7 fl (78.0-98.0); Mean Platelet Volume 9.4 fL (7.4-10.4); Platelet Count 59 10x3/uL (130-400); RBC Distribution Width 14.1 % (11.5-14.5); Red Blood Cell (RBC) Count 3.86 mill/uL (4.70-6.10); White Blood Cell (WBC) Count 7.7 10x3/uL (4.8-10.8)
[2022-11-14 09:13] LABS: ALT (SGPT) 11 U/L (8-55); AST (SGOT) 26 U/L (5-34); Albumin 2.7 g/dL (3.4-4.8); Alkaline Phosphatase 56 U/L (40-110); Anion Gap 11 mmol/L (10-20); BUN (Urea Nitrogen) 54 mg/dL (8.4-25.7); Bilirubin, Total 0.5 mg/dL (0.2-1.2); Calc. Creatinine Clearance 48 mL/min (70-130); Calcium 7.9 mg/dL (7.8-10.44); Carbon Dioxide 22 mmol/L (23-31); Chloride 106 mmol/L (98-107); Estimated GFR 37; Globulin 2.7 g/dL (2.4-3.5); Glucose 126 mg/dL (83-110); Potassium 4.3 mmol/L (3.5-5.1); Protein, Total 5.4 g/dL (5.8-8.1); Sodium 135 mmol/L (136-145)
[2022-11-14] MEDS ORDERED: Furosemide 40 MG/4 ML VIAL SLOW IVP SCH (10:30)
[2022-11-14] MEDS ORDERED: Bisacodyl 10 MG SUPP PR SCH (11:00)
[2022-11-14] MEDS: Sodium Chloride 0.9% 1,000 ML IV SCH (12:08)
[2022-11-14] MEDS: Senokot S 8.6-50 MG TAB PO SCH (19:32)
[2022-11-14] MEDS: Saccharomyces boulardii 250 MG CAP PO SCH (19:32)
[2022-11-15] MEDS: Acetaminophen/Codeine 30-300mg Tablet PO SCH ×3 (01:03→12:30)
[2022-11-15] MEDS ORDERED: Levothyroxine Sodium 125 MCG TAB PO SCH (06:00)
[2022-11-15 06:22] LABS: Anion Gap 11 mmol/L (10-20); BUN (Urea Nitrogen) 43 mg/dL (8.4-25.7); Calc. Creatinine Clearance 59 mL/min (70-130); Calcium 7.9 mg/dL (7.8-10.44); Carbon Dioxide 23 mmol/L (23-31); Chloride 106 mmol/L (98-107); Estimated GFR 46; Glucose 123 mg/dL (83-110); Potassium 4.1 mmol/L (3.5-5.1); Sodium 136 mmol/L (136-145)
[2022-11-15 06:44] LABS: Band 2 % (5-11); Hemoglobin 11.6 g/dL (14.0-18.0); Lymphocytes 8 % (21-51); MDiff Complete? YES; Mean Corpuscular Hemoglobin 31.2 pg (27.0-31.0); Mean Corpuscular Volume 94.4 fl (78.0-98.0); Mean Platelet Volume 9.4 fL (7.4-10.4); Monocytes 4 % (0-10); Neutrophil 86 % (42-75); Platelet Count 64 10x3/uL (130-400); Platelet Morphology Comment Appears Decreased; RBC Morphology Normal; Red Blood Cell (RBC) Count 3.71 mill/uL (4.70-6.10); White Blood Cell (WBC) Count 8.2 10x3/uL (4.8-10.8)
[2022-11-15] MEDS: Amoxicillin/Potassium Clav 875 MG TAB PO SCH (08:21)
[2022-11-15] MEDS: Carvedilol 3.125 MG TAB PO SCH (08:21)
[2022-11-15] MEDS: Aspirin 81 mg Enteric Coated Tablet PO SCH (08:22)
[2022-11-15] MEDS: Senokot S 8.6-50 MG TAB PO SCH (08:26)
[2022-11-15] MEDS ORDERED: Polyethylene Glycol 3350 17 GM Packet PO SCH (09:00)
[2022-11-15] MEDS ORDERED: Tamsulosin HCl 0.4 MG CAP PO SCH (09:00)
[2022-11-15] MEDS ORDERED: Furosemide 40 MG/4 ML VIAL SLOW IVP SCH (12:00)
[2022-11-15 15:35] VITALS: BP 145/68; TEMP 98.9
== END 2022-11-15 15:38 | DRG 853 ==
LOC: ERS 22:14 → 2SW 11-08 01:19 → CCU 11-10 02:54 → T4-A 11-13 13:58
PROVIDERS: ADMIT Family Medicine; ATTEND Family Medicine
PROC: 3E03329 Introduction of Other Anti-infective into Peripheral Vein, Percutaneous Approach (ICD-10-PCS; 2022-11-08)
PROC: 3E033XZ Introduction of Vasopressor into Peripheral Vein, Percutaneous Approach (ICD-10-PCS; 2022-11-08)
PROC: 0FT44ZZ Resection of Gallbladder, Percutaneous Endoscopic Approach (ICD-10-PCS; principal; 2022-11-12)
DX: A41.59 Other Gram-negative sepsis (principal); I21.A1 Myocardial infarction type 2; R65.21 Severe sepsis with septic shock; J96.01 Acute respiratory failure with hypoxia; N17.9 Acute kidney failure, unspecified; E87.1 Hypo-osmolality and hyponatremia; K80.00 Calculus of gallbladder with acute cholecystitis without obstruction; E44.0 Moderate protein-calorie malnutrition; G93.40 Encephalopathy, unspecified; K82.A1 Gangrene of gallbladder in cholecystitis; Z20.822 Contact with and (suspected) exposure to COVID-19; E78.00 Pure hypercholesterolemia, unspecified; E03.9 Hypothyroidism, unspecified; K21.9 Gastro-esophageal reflux disease without esophagitis; I25.10 Atherosclerotic heart disease of native coronary artery without angina pectoris; N18.30 Chronic kidney disease, stage 3 unspecified; I12.9 Hypertensive chronic kidney disease with stage 1 through stage 4 chronic kidney disease, or unspecified chronic kidney disease; D63.1 Anemia in chronic kidney disease; N28.1 Cyst of kidney, acquired; E87.5 Hyperkalemia; E83.51 Hypocalcemia; Z98.890 Other specified postprocedural states; Z88.8 Allergy status to other drugs, medicaments and biological substances; Z79.890 Hormone replacement therapy; Z79.82 Long term (current) use of aspirin; Z79.899 Other long term (current) drug therapy; Z87.891 Personal history of nicotine dependence; Z68.32 Body mass index [BMI] 32.0-32.9, adult
CPT/HCPCS: 36415; 36416; 36600; 71045; 71275; 74018; 74174; 74176; 76705; 80048; 80053; 80061; 80076; 81001; 82533; 82553; 82805; 83036; 83605; 83690; 83735; 83880; 84100; 84439; 84443; 84484; 85025; 85610; 85730; 86140; 86850; 86900; 86901; 87040; 87077; 87086; 87149; 87186; 87811; 88304; 93005; 93010; 93306; 96372; 96374; 96375; C1889; J0692; J0696; J1644; J1650; J1940; J2270; J2272; J2405; J2543; J2704; J2765; J3010; J3370; J3475; J3480; J3490; J7030; J7050; J7120; P9045; P9047; Q9967; U0003; U0005

== ENCOUNTER 2023-08-24 17:35 | Emergency (ER) | payer MEDICARE, BC ==
[2023-08-24] MEDS ORDERED: HYDROcodone/Acetaminophen 5/325 mg Tablet ONE (19:00)
== END 2023-08-24 19:01 | disposition home or self-care (01) ==
LOC: ERS 17:35
DX: M25.461 Effusion, right knee (principal); M17.11 Unilateral primary osteoarthritis, right knee; E78.5 Hyperlipidemia, unspecified; I10 Essential (primary) hypertension; E03.9 Hypothyroidism, unspecified; Z87.891 Personal history of nicotine dependence; Z79.82 Long term (current) use of aspirin; Z79.899 Other long term (current) drug therapy

== ENCOUNTER 2023-08-27 04:47 | Emergency (ER) | payer MEDICARE, BC ==
[2023-08-27] MEDS ORDERED: Ketorolac Tromethamine 30 MG/ML VIAL ONE (05:01)
[2023-08-27] MEDS ORDERED: Ondansetron PF 4 MG/2 ML Vial ONE (05:01)
[2023-08-27] MEDS ORDERED: Morphine 4 MG/ML VIAL ONE (05:01)
[2023-08-27] MEDS ORDERED: Lidocaine 1% PF 5 ML VIAL ONE (05:09)
[2023-08-27 05:14] LABS: #Monocytes 0.9 thou/uL (0.11-0.59); #Neutrophils 9.8 thou/uL (1.40-6.50); %Basophils 0.2 % (0.0-1.0); %Eosinophils 0.2 % (0.0-10.0); %Lymphocytes 14.3 % (21.0-51.0); %Monocytes 6.9 % (0.0-10.0); %Neutrophils 78.1 % (42.0-75.0); Hematocrit 39.8 % (42.0-52.0); Hemoglobin 13.3 g/dL (14.0-18.0); Mean Corpuscular HGB CONC 33.4 g/dL (32.0-36.0); Mean Corpuscular Hemoglobin 30.9 pg (27.0-31.0); Mean Corpuscular Volume 92.3 fl (78.0-98.0); Mean Platelet Volume 9.5 fL (7.4-10.4); Platelet Count 210 10x3/uL (130-400); RBC Distribution Width 13.3 % (11.5-14.5); Red Blood Cell (RBC) Count 4.31 mill/uL (4.70-6.10); White Blood Cell (WBC) Count 12.6 10x3/uL (4.8-10.8)
[2023-08-27 05:38] LABS: ALT (SGPT) 9 U/L (8-55); AST (SGOT) 14 U/L (5-34); Albumin 4.5 g/dL (3.4-4.8); Alkaline Phosphatase 56 U/L (40-110); Anion Gap 15 mmol/L (10-20); BUN (Urea Nitrogen) 19 mg/dL (8.4-25.7); Bilirubin, Total 0.5 mg/dL (0.2-1.2); Calc. Creatinine Clearance 0 mL/min (70-130); Calcium 9.3 mg/dL (7.8-10.44); Carbon Dioxide 24 mmol/L (23-31); Chloride 103 mmol/L (98-107); Estimated GFR 65; Globulin 2.8 g/dL (2.4-3.5); Glucose 113 mg/dL (83-110); Potassium 3.8 mmol/L (3.5-5.1); Protein, Total 7.3 g/dL (5.8-8.1); Sodium 138 mmol/L (136-145)
[2023-08-27 07:07] LABS: RBC Count-Automated (BF) Greater than 890000 /cu.mm; WBC/Nucleated-Auto (BF) 3436 /cu.mm
[2023-08-27 07:12] LABS: BF Color Red; Body Fluid Source Synovial Fluid; Clarity Cloudy/Turbid (Clear)
[2023-08-27 07:32] LABS: BF Segmented Neutrophils 93 %; Cell Count Non Hematic 1 %; Lymphocytes 6 %
== END 2023-08-27 06:33 | disposition home or self-care (01) ==
LOC: ERS 04:47
DX: M25.461 Effusion, right knee (principal); M25.061 Hemarthrosis, right knee; Z87.891 Personal history of nicotine dependence
CPT/HCPCS: 20610; 36415; 80053; 82945; 85025; 85060; 86140; 87070; 87205; 89051; 89060; 96374; 96375; J1885; J2270; J2405

== ENCOUNTER 2023-08-29 08:12 | Emergency (ER) | payer MEDICARE, BC ==
[2023-08-29] MEDS ORDERED: HYDROcodone/Acetaminophen 10/325 mg Tablet ONE (08:35)
== END 2023-08-29 13:52 ==
LOC: ERS 08:12
DX: M25.561 Pain in right knee (principal); I10 Essential (primary) hypertension; E03.9 Hypothyroidism, unspecified; K21.9 Gastro-esophageal reflux disease without esophagitis; Z87.891 Personal history of nicotine dependence; Z79.82 Long term (current) use of aspirin; Z79.899 Other long term (current) drug therapy

== ENCOUNTER 2023-09-01 12:46 | Outpatient (CLI) | payer MEDICARE, BC | END 2023-09-01 12:47 | disposition home or self-care (01) | LOC: BICMRI 12:46 | PROVIDERS: ATTEND Orthopaedic Surgery | DX: M17.11 Unilateral primary osteoarthritis, right knee (principal); M25.461 Effusion, right knee; M71.21 Synovial cyst of popliteal space [Baker], right knee; M23.91 Unspecified internal derangement of right knee; S83.511A Sprain of anterior cruciate ligament of right knee, initial encounter; S83.281A Other tear of lateral meniscus, current injury, right knee, initial encounter ==

== ENCOUNTER 2023-12-18 09:58 | Outpatient (CLI) | payer MEDICARE, BC ==
[2023-12-18 12:50] LABS: #Eosinphils 0.2 10x3/uL (0.0-0.5); #Monocytes 0.5 10x3/uL (0.0-1.1); #Neutrophils 3.7 10x3/uL (1.5-8.4); %Basophils 0.5 % (0.0-2.0); %Eosinophils 3.3 % (0.0-6.0); %Lymphocytes 22.3 % (18.0-47.0); %Monocytes 7.9 % (0.0-10.0); %Neutrophils 65.6 % (40.0-75.0); Hematocrit 41.4 % (38.8-50.0); Hemoglobin 13.4 g/dL (13.5-17.5); Mean Corpuscular HGB CONC 32.4 g/dL (32.0-36.0); Mean Corpuscular Hemoglobin 29.5 pg (27.0-33.0); Mean Corpuscular Volume 91.2 fl (81.2-95.1); Mean Platelet Volume 10.9 fl (7.4-10.4); Platelet Count 162 10x3/uL (150-450); RBC Distribution Width 14.1 % (11.5-14.5); Red Blood Cell (RBC) Count 4.54 10x6/uL (4.32-5.72); White Blood Cell (WBC) Count 5.7 10x3/uL (3.5-10.5)
[2023-12-18 13:26] LABS: Anion Gap 13 mmol/L (10-20); BUN (Urea Nitrogen) 16 mg/dL (8.4-25.7); Calc. Creatinine Clearance 0 mL/min (70-130); Calcium 8.8 mg/dL (7.8-10.44); Carbon Dioxide 26 mmol/L (23-31); Chloride 104 mmol/L (98-107); Estimated GFR 62; Glucose 89 mg/dL (83-110); Potassium 4.5 mmol/L (3.5-5.1); Sodium 138 mmol/L (136-145)
[2023-12-18 13:32] LABS: Prothrombin Time 10.5 sec (9.5-12.1)
== END 2023-12-18 09:59 | disposition home or self-care (01) ==
LOC: LABBT 09:58
PROVIDERS: ATTEND Orthopaedic Surgery
DX: Z01.818 Encounter for other preprocedural examination (principal); M17.11 Unilateral primary osteoarthritis, right knee
CPT/HCPCS: 80048; 85025; 85610; 87081; 93005; 93010

== ENCOUNTER 2023-12-22 06:18 | Observation (INO) | payer MEDICARE, BC ==
[2023-12-22] MEDS ORDERED: Tranexamic Acid 1,000 MG/10 ML VIAL ONE (06:46)
[2023-12-22] MEDS ORDERED: Sodium Chloride 0.9% 100 ML ONE ×2 (06:47→09:14)
[2023-12-22] MEDS ORDERED: Vancomycin (BATCH) 1.5 GM/300 ML BAG ONE (06:47)
[2023-12-22] MEDS ORDERED: EPINEPHrine 1 MG/ML VIAL ONE ×3 (08:11→09:57)
[2023-12-22] MEDS ORDERED: fentaNYL 50 mcg/mL 1 mL Vial ONE ×3 (08:12→11:50)
[2023-12-22] MEDS ORDERED: Lidocaine 1% (PF) 30 ML VIAL ONE (08:12)
[2023-12-22] MEDS ORDERED: Bupivacaine PF 0.5% 30 ML VIAL ONE ×3 (08:12→09:57)
[2023-12-22] MEDS ORDERED: Midazolam HCl 2 mg/2 ml Vial ONE (08:12)
[2023-12-22] MEDS ORDERED: Dexamethasone 4 mg/ml Vial ONE (08:56)
[2023-12-22] MEDS ORDERED: fentaNYL PF 100 MCG/2 ML SYRINGE ONE (08:56)
[2023-12-22] MEDS ORDERED: PROPOFOL 20 ML ONE (08:56)
[2023-12-22] MEDS ORDERED: Ondansetron PF 4 MG/2 ML Vial ONE (08:56)
[2023-12-22] MEDS ORDERED: Lidocaine 1% PF 5 ML VIAL ONE (08:56)
[2023-12-22] MEDS ORDERED: Rocuronium Bromide 10 MG/ML (10ML VIAL) ONE (08:56)
[2023-12-22] MEDS ORDERED: fentaNYL 50 mcg/mL 1 mL Vial SLOW IVP PRN (09:11)
[2023-12-22] MEDS ORDERED: CEFAZOLIN 2 GM VIAL ONE (09:14)
[2023-12-22] MEDS ORDERED: Zolpidem Tartrate 5 MG TAB PO PRN (09:15)
[2023-12-22] MEDS ORDERED: Promethazine HCl 25 MG/ML VIAL IM PRN ×2 (09:15→09:51)
[2023-12-22] MEDS ORDERED: traMADol HCl 50 MG TAB PO PRN ×2 (09:15)
[2023-12-22] MEDS ORDERED: Ropivacaine 0.2% 550 ML 550 ML NERVE BLCK SCH (09:15)
[2023-12-22] MEDS ORDERED: Ondansetron PF 4 MG/2 ML Vial IVP PRN (09:15)
[2023-12-22] MEDS ORDERED: HYDROcodone/Acetaminophen 10/325 mg Tablet PO PRN (09:15)
[2023-12-22] MEDS ORDERED: Ondansetron HCl/PF 4 MG/2 ML Vial IVP PRN (09:51)
[2023-12-22] MEDS ORDERED: ePHEDrine Sulfate 50 MG/10 ML VIAL ONE (10:26)
[2023-12-22] MEDS ORDERED: Meperidine HCl/PF 25 MG (1 mL) VIAL ONE (11:29)
[2023-12-22] MEDS ORDERED: diphenhydrAMINE 25 MG CAP PO PRN (11:35)
[2023-12-22] MEDS ORDERED: Acetaminophen 325 MG TAB PO PRN (11:35)
[2023-12-22 13:05] VITALS: BMI 29.7
[2023-12-22] MEDS: Sodium Chloride 0.9% 1,000 ML IV SCH (13:14)
[2023-12-22] MEDS ORDERED: Nitroglycerin 0.4 MG TAB (25 Tab Bottle) SL PRN (13:35)
[2023-12-22] MEDS: Ketorolac Tromethamine 30 MG (1 mL) VIAL IVP SCH (14:46)
[2023-12-22] MEDS: FLU VACC QS2023(65UP)/MF59C/PF 60 MCG/0.5 ML SYRINGE IM ONE (15:40)
[2023-12-22] MEDS: Carvedilol 3.125 MG TAB PO SCH (18:05)
[2023-12-22] MEDS: CEFAZOLIN 2 GM in Sodium Chloride 0.9% 100 ML IVPB SCH (18:06)
[2023-12-22] MEDS: Aspirin 81 mg Enteric Coated Tablet PO SCH (20:15)
[2023-12-22] MEDS: Ezetimibe 10 MG TAB PO SCH (20:16)
[2023-12-22] MEDS: Lisinopril 5 MG TAB PO SCH (20:16)
[2023-12-22] MEDS: Ferrous Gluconate 324 MG TAB PO SCH (20:16)
[2023-12-22] MEDS: Senokot S 8.6-50 MG TAB PO SCH (20:17)
[2023-12-23 04:05] LABS: Hemoglobin 11.1 g/dL (14.0-18.0); Mean Corpuscular HGB CONC 32.6 g/dL (32.0-36.0); Mean Corpuscular Hemoglobin 29.9 pg (27.0-31.0); Mean Corpuscular Volume 91.6 fl (78.0-98.0); Mean Platelet Volume 10.6 fL (7.4-10.4); Platelet Count 129 10x3/uL (130-400); RBC Distribution Width 14.1 % (11.5-14.5); Red Blood Cell (RBC) Count 3.71 mill/uL (4.70-6.10); White Blood Cell (WBC) Count 7.2 10x3/uL (4.8-10.8)
[2023-12-23] MEDS: Levothyroxine Sodium 125 MCG TAB PO SCH (05:36)
[2023-12-23 09:00] VITALS: BP 128/73; TEMP 98
[2023-12-23] MEDS: Tamsulosin HCl 0.4 MG CAP PO SCH (09:01)
[2023-12-23] MEDS: Isosorbide Mononitrate 30 MG ER.TAB PO SCH (09:01)
[2023-12-23] MEDS: Multivitamin W/ Minerals 1 TAB PO SCH (09:02)
[2023-12-23] MEDS: HYDROcodone/Acetaminophen 10/325 mg Tablet PO PRN (09:04)
== END 2023-12-23 11:50 | disposition home or self-care (01) ==
LOC: SDC 06:18 → SURG B 11:35
PROVIDERS: ADMIT Orthopaedic Surgery; ATTEND Orthopaedic Surgery
PROC: 0SRC0JZ Replacement of Right Knee Joint with Synthetic Substitute, Open Approach (ICD-10-PCS; principal; 2023-12-22)
DX: M17.11 Unilateral primary osteoarthritis, right knee (principal); E03.9 Hypothyroidism, unspecified; I10 Essential (primary) hypertension; I25.2 Old myocardial infarction; Z91.041 Radiographic dye allergy status; Z90.49 Acquired absence of other specified parts of digestive tract; Z79.82 Long term (current) use of aspirin; Z79.890 Hormone replacement therapy; Z87.442 Personal history of urinary calculi; Z87.891 Personal history of nicotine dependence
CPT/HCPCS: 27447; 73560; 85027; 97110 ×2; 97116 ×2; 97530 ×2; A4306; C1713; C1776; J0171; J3010; J3370; 36415; J0665; J1100; J1885; J2001; J2175; J2250; J2405; J2704; J2795; J3490

== ENCOUNTER 2024-08-30 12:30 | Outpatient (CLI) | payer MEDICARE, BC | END 2024-08-30 12:31 | disposition home or self-care (01) | LOC: PET 12:30 | PROVIDERS: ATTEND Urology | DX: C61 Malignant neoplasm of prostate (principal); R94.8 Abnormal results of function studies of other organs and systems | CPT/HCPCS: 78815; A9552; A9595 ==

== ENCOUNTER 2025-05-05 13:30 | Outpatient (CLI) | payer MEDICARE, BC ==
[2025-05-05] MEDS ORDERED: Iopamidol 370 76% 100 ML VIAL ONE (14:21)
== END 2025-05-05 13:31 | disposition home or self-care (01) ==
LOC: CT 13:30
PROVIDERS: ATTEND Internal Medicine Hematology & Oncology
DX: D70.9 Neutropenia, unspecified (principal); C20 Malignant neoplasm of rectum; C61 Malignant neoplasm of prostate
CPT/HCPCS: 71260; 74160; Q9967